=== PATIENT | male | born 1930 | race Caucasian/White ===

== ENCOUNTER → 2016-07-06 | Outpatient (CLI) | payer MEDICARE, BC ==
--- NOTE | 2016-07-06 12:40 | CR ---
EXAMINATION: Two-view chest (PA and Lateral views). HISTORY: Wheezing. COMPARISON: 09/05/2014. FINDINGS: The trachea is midline. The cardiomediastinal silhouette is grossly stable. There is chronic scarrin g noted within the left lung base. A trace underlying consolidation and/or pleural effusion is not e xcluded. No pneumothorax. Osseous structures appear unremarkable. IMPRESSION: Chronic left basilar scarring, mild superimposed pneumonia and/or a small pleural effusion are not e xcluded.
== END ==
LOC: MW.CHFP 11:06
PROVIDERS: ATTEND Student in an Organized Health Care Education/Training Program
DX: R05 Cough (principal); R06.2 Wheezing; R91.8 Other nonspecific abnormal finding of lung field
CPT/HCPCS: 36415; 71020; 71020-26; 85025; G0463

== ENCOUNTER → 2016-07-16 | Outpatient (CLI) | payer MEDICARE, BC ==
[~2016-07-16] MED LIST: Albuterol 0.083% 2.5 MG/3 ML Neb Soln NEB ONE
== END ==
LOC: MW.RT 13:14
PROVIDERS: ATTEND Student in an Organized Health Care Education/Training Program
DX: R06.2 Wheezing (principal)
CPT/HCPCS: 94060; 94727; 94729

== ENCOUNTER 2016-08-07 17:32 | Emergency (ER) | payer MEDICARE, BC ==
[2016-08-07] MEDS ORDERED: Diphtheria,Pertussis(Acell),Tetanus Vaccine 0.5 ML Syringe IM ONE (17:47)
--- NOTE | 2016-08-07 17:52 | EDM.PDOC ---
ED HPI GENERAL MEDICAL PROBLEM - General Chief Complaint: Laceration Stated Complaint: PT FELL AND HURT HEAD Time Seen by Provider: 08/07/16 17:50 Source of Information: Reports: Patient - History of Present Illness INITIAL COMMENTS - FREE TEXT/NARRATIVE: HISTORY AND PHYSICAL: History of present illness: [] Patient was working in his garden and he tripped over a hose sustained a small 1.5 cm linear laceration left occipital, he is alert and ambulatory arrives via private vehicle no pain No fever nausea vomiting chills sweats denies loss of consciousness Denies any musculoskeletal pain Review of systems: As per history of present illness and below otherwise all systems reviewed and negative. Past medical history: As per history of present illness and as reviewed below otherwise noncontributory. Surgical history: As per history of present illness and as reviewed below otherwise noncontributory. Social history: No reported history of drug or alcohol abuse. Family history: As per history of present illness and as reviewed below otherwise noncontributory. Physical exam: HEENT: Atraumatic, normocephalic, pupils reactive, negative for conjunctival pallor or scleral icterus, mucous membranes moist, throat clear, neck supple, nontender, trachea midline. No cervical tenderness Lungs: Clear to auscultation, breath sounds equal bilaterally, chest nontender. Heart: S1S2, regular, negative for clicks, rubs, or JVD. Abdomen: Soft, nondistended, nontender. Negative for masses or hepatosplenomegaly. Negative for costovertebral tenderness. Pelvis: Stable nontender. Genitourinary: Deferred. Rectal: Deferred. Extremities: Atraumatic, negative for cords or calf pain. Neurovascular unremarkable. Neuro: Awake, alert, oriented. Cranial nerves II through XII unremarkable. Cerebellum unremarkable. Motor and sensory unremarkable throughout. Exam nonfocal. Diagnostics: [] Therapeutics: [] #2 denise Tetanus status updated Impression: [] 1.5 cm linear laceration occiput Definitive disposition and diagnosis as appropriate pending reevaluation and review of above. Left Posterior Head Pain Score (Numeric/FACES): 5 - Related Data Allergies Allergy/AdvReac Type Severity Reaction Status Date / Time No Known Allergies Allergy Verified 08/07/16 17:44 Home Meds: Home Meds Finasteride [Proscar] 5 mg PO DAILY 08/07/16 [History] Hydrochlorothiazide 25 mg PO DAILY 08/07/16 [History] Potassium Chloride 20 meq PO DAILY 08/07/16 [History] Simvastatin [Zocor] 20 mg PO BEDTIME 08/07/16 [History] ED ROS GENERAL - Review of Systems Review Of Systems: ROS reveals no pertinent complaints other than HPI. ED EXAM, SKIN/RASH Exam: See Below Course - Vital Signs Last Recorded V/S: Last Vital Signs Temp 36.3 C 08/07/16 17:37 Pulse 81 08/07/16 17:37 Resp 21 H 08/07/16 17:37 BP 180/83 H 08/07/16 17:37 Pulse Ox 98 08/07/16 17:37 - Orders/Labs/Meds Orders: Active Orders 24 hr Category Date Time Status EKG Documentation Completion [RC] STAT Care 08/07/16 17:47 Ordered Vaccines to be Administered [RC] PER UNIT ROUTINE Care 08/07/16 17:47 Ordered Meds: Medications Discontinued Medications Generic Name Dose Route Start Last Admin Trade Name Ever PRN Reason Stop Dose Admin Diphtheria/Tetanus/Acell Pertussis 0.5 ml 08/07/16 17:47 Adacel IM 08/07/16 17:48 .ONCE ONE Departure - Departure Time of Disposition: 17:51 Disposition: Home, Self-Care 01 Condition: good Clinical Impression: Laceration - Discharge Information Forms: ED Department Discharge Additional Instructions: Standard head injury precaution Standard wound care instructions Keep wound clean and dry for 48 hours Return if redness warmth or pus drainage should it develop [place] out in 5 days return to ER for removal The following information is given to patients seen in the emergency department who are being discharged to home. This information is to outline your options for follow-up care. We provide all patients seen in our emergency department with a follow-up referral. The need for follow-up, as well as the timing and circumstances, are variable depending upon the specifics of your emergency department visit. If you don't have a primary care physician on staff, we will provide you with a referral. We always advise you to contact your personal physician following an emergency department visit to inform them of the circumstance of the visit and for follow-up with them and/or the need for any referrals to a consulting specialist. The emergency department will also refer you to a specialist when appropriate. This referral assures that you have the opportunity for follow-up care with a specialist. All of these measure are taken in an effort to provide you with optimal care, which includes your follow-up. Under all circumstances we always encourage you to contact your private physician who remains a resource for coordinating your care. When calling for follow-up care, please make the office aware that this follow-up is from your recent emergency room visit. If for any reason you are refused follow-up, please contact the [facility] emergency department at and asked to speak to the emergency department charge nurse. - My Orders Last 24 Hours: My Active Orders 08/07/16 17:47 EKG Documentation Completion [RC] STAT Vaccines to be Administered [RC] PER UNIT ROUTINE - Assessment/Plan Last 24 Hours: My Active Orders 08/07/16 17:47 EKG Documentation Completion [RC] STAT Vaccines to be Administered [RC] PER UNIT ROUTINE
[2016-08-07 18:09] VITALS: BP 173/79
== END 2016-08-07 18:06 | disposition home or self-care (01) ==
LOC: MW.ED 17:32
DX: S01.01XA Laceration without foreign body of scalp, initial encounter (principal); Z23 Encounter for immunization; W01.0XXA Fall on same level from slipping, tripping and stumbling without subsequent striking against object, initial encounter; Y92.89 Other specified places as the place of occurrence of the external cause; Z79.899 Other long term (current) drug therapy
CPT/HCPCS: 12001; 90471; 90715; 93005; 99282; 99283-25

== ENCOUNTER 2016-08-12 11:23 | Emergency (ER) | payer MEDICARE, BC ==
[2016-08-12 11:34] VITALS: BP 129/70
== END 2016-08-12 11:35 | disposition left against medical advice (07) ==
LOC: MW.ED 11:23
DX: S01.01XD Laceration without foreign body of scalp, subsequent encounter (principal); X58.XXXD Exposure to other specified factors, subsequent encounter

== ENCOUNTER 2017-05-24 17:14 | Emergency (ER) | payer MEDICARE, BC ==
[2017-05-24] MEDS ORDERED: Morphine 2 MG/ML Syringe IVPUSH ONE (17:46)
[2017-05-24] MEDS ORDERED: Sodium Chloride 0.9% 2.5 ML Syringe FLUSH PRN (17:46)
[2017-05-24] MEDS ORDERED: Sodium Chloride 0.9% 10 ML Syringe FLUSH PRN (17:46)
[2017-05-24] MEDS ORDERED: Ondansetron 4 MG/2 ML SDV IVPUSH ONE (17:46)
[2017-05-24 17:58] VITALS: BP 134/68
[2017-05-24] MEDS ORDERED: Sodium Chloride 0.9% 1,000 ML IV SCH (18:00)
[2017-05-24] MEDS ORDERED: Lactated Ringers 1,000 ML IV SCH (18:15)
--- NOTE | 2017-05-24 18:18 | EDM.PDOC ---
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 He denies incontinence or retention of bowel or bladder. Patient has had pleural effusion and thoracentesis for this with Dr. Yousif out of [facility]. He sees Dr. Sequeira out of [place] for oncology. Review of systems: As per history of present illness and below otherwise all systems reviewed and negative. Past medical history: As per history of present illness and as reviewed below otherwise noncontributory. Surgical history: As per history of present illness and as reviewed below otherwise noncontributory. Social history: No reported history of drug or alcohol abuse. Family history: As per history of present illness and as reviewed below otherwise noncontributory. Physical exam: HEENT: Atraumatic, normocephalic, pupils reactive, negative for conjunctival pallor or scleral icterus, mucous membranes moist, throat clear, neck supple, nontender, trachea midline. Lungs: Coarse bilaterally diminished scant basilar crackles, breath sounds equal bilaterally, chest nontender. Heart: S1S2, regular, negative for clicks, rubs, or JVD. Abdomen: Soft, nondistended, nontender. Negative for masses or hepatosplenomegaly. Negative for costovertebral tenderness. Pelvis: Stable nontender. Genitourinary: Deferred. Rectal: Deferred. Extremities: Atraumatic, negative for cords or calf pain. Neurovascular unremarkable. Neuro: Awake, alert, oriented. Cranial nerves II through XII unremarkable. Cerebellum unremarkable. Motor and sensory unremarkable throughout. Exam nonfocal. Back: Patient has some tenderness that is not well localized in the region of his lumbar spine there is no localized vertebral body tenderness on exam Diagnostics: BNP CBC CMP PT/INR UA chest x-ray EKG Therapeutics: Lactated Ringer's at 125 an hour morphine sulfate 2 mg IV Zofran 4 mg IV Impression: #1 history of metastatic lung CA with spine involvement #2 inferior extremity pain/weakness Definitive disposition and diagnosis as appropriate pending reevaluation and review of above. low back pain, bilateral leg pain Pain Score (Numeric/FACES): 9 - Related Data Allergies Allergy/AdvReac Type Severity Reaction Status Date / Time No Known Allergies Allergy Verified 08/07/16 17:44 Home Meds: Home Meds Finasteride [Proscar] 5 mg PO DAILY 08/07/16 [History] Hydrochlorothiazide 25 mg PO DAILY 08/07/16 [History] Potassium Chloride 20 meq PO DAILY 08/07/16 [History] Simvastatin [Zocor] 20 mg PO BEDTIME 08/07/16 [History] Past Medical History HEENT History: Reports: Hard of Hearing Other HEENT History: wears hearing aides Cardiovascular History: Reports: High Cholesterol, Hypertension Genitourinary History: Reports: Prostate Disorder Psychiatric History: Reports: None Oncologic (Cancer) History: Reports: Lung Other Oncologic History: 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 ED EXAM, GENERAL - Physical Exam Exam: See Below (See dictation) Course - Vital Signs Text/Narrative:: I discussed with patient and daughter at length differential diagnosis including spinal cord issues related to his metastatic disease and my concern regarding the weakness and pain in the acute nature of his presentation at this time and in spite of the advanced disease he has a 2 request transfer and to request specific transfer to [facility] they're declining aeromedical for transfer the request ground ambulance daughter and patient understand all the implications related to his current condition and the possible emergent nature and consequences of involvement of the spine with his presentation. Last Recorded V/S: Last Vital Signs Temp 36.2 C 05/24/17 17:53 Pulse 61 05/24/17 17:53 Resp 16 05/24/17 17:53 BP 134/68 05/24/17 17:53 Pulse Ox 96 05/24/17 17:53 - Orders/Labs/Meds Orders: Active Orders 24 hr Category Date Time Status EKG Documentation Completion [RC] STAT Care 05/24/17 17:45 Active Pulse Oximetry [RC] ASDIRECTED Care 05/24/17 17:45 Active Chest 1V Frontal [CR] Stat Exams 05/24/17 17:46 Taken UA W/MICROSCOPIC [URIN] Stat Lab 05/24/17 17:46 Ordered Lactated Ringers [Ringers, Lactated] 1,000 ml Med 05/24/17 18:15 Active IV ASDIRECTED Sodium Chloride 0.9% [Normal Saline] 1,000 ml Med 05/24/17 18:00 Active IV STAT Sodium Chloride 0.9% [Saline Flush] Med 05/24/17 17:46 Active 10 ml FLUSH ASDIRECTED PRN Sodium Chloride 0.9% [Saline Flush] Med 05/24/17 17:46 Active 2.5 ml FLUSH ASDIRECTED PRN Saline Lock Insert [OM.PC] Stat Oth 05/24/17 17:45 Ordered Medication Orders Sodium Chloride (Normal Saline) 1,000 mls @ 125 mls/hr IV STAT RAJIV Lactated Ringer's (Ringers, Lactated) 1,000 mls @ 125 mls/hr IV ASDIRECTED RAJIV Last Admin: 05/24/17 18:05 Dose: 125 mls/hr Sodium Chloride (Saline Flush) 10 ml FLUSH ASDIRECTED PRN PRN Reason: Keep Vein Open Sodium Chloride (Saline Flush) 2.5 ml FLUSH ASDIRECTED PRN PRN Reason: Keep Vein Open Labs: Laboratory Tests 05/24/17 05/24/17 05/24/17 Range/Units 17:58 17:58 17:58 WBC 11.73 H (4.0-11.0) K/uL RBC 4.12 L (4.50-5.90) M/uL Hgb 12.5 L (13.0-17.0) g/dL Hct 37.0 L (38.0-50.0) % MCV 89.8 (80.0-98.0) fL MCH 30.3 (27.0-32.0) pg MCHC 33.8 (31.0-37.0) g/dL RDW Std Deviation 50.4 (28.0-62.0) fl RDW Coeff of Estelita 15 (11.0-15.0) % Plt Count 369 (150-400) K/uL MPV 8.20 (7.40-12.00) fL Neut % (Auto) 79.6 (48.0-80.0) % Lymph % (Auto) 12.9 L (16.0-40.0) % [place] % (Auto) 6.7 (0.0-15.0) % Eos % (Auto) 0.5 (0.0-7.0) % Baso % (Auto) 0.3 (0.0-1.5) % Neut # (Auto) 9.3 H (1.4-5.7) K/uL Lymph # (Auto) 1.5 (0.6-2.4) K/uL [place] # (Auto) 0.8 (0.0-0.8) K/uL Eos # (Auto) 0.1 (0.0-0.7) K/uL Baso # (Auto) 0.0 (0.0-0.1) K/uL Nucleated RBC % 0.0 /100WBC Nucleated RBCs # 0 K/uL INR 0.93 Sodium 137 (136-148) mmol/L Potassium 3.7 (3.5-5.1) mmol/L Chloride 101 (98-107) mmol/L Carbon Dioxide 29.3 (21.0-32.0) mmol/L BUN 15 (7.0-18.0) mg/dL Creatinine 0.7 L (0.8-1.3) mg/dL Est Cr Clr Drug Dosing 78.52 mL/min Estimated GFR (MDRD) > 60.0 ml/min Glucose 99 (74-106) mg/dL Calcium 8.6 (8.5-10.1) mg/dL Total Bilirubin 0.8 (0.2-1.0) mg/dL AST 38 H (15-37) IU/L ALT 27 (14-63) IU/L Alkaline Phosphatase 490 H (46-116) U/L B-Natriuretic Peptide (<100) PG/ML Total Protein 7.0 (6.4-8.2) g/dL Albumin 3.3 L (3.4-5.0) g/dL Globulin 3.7 H (2.0-3.5) g/dL Albumin/Globulin Ratio 0.9 L (1.3-2.8) 05/24/17 Range/Units 17:58 WBC (4.0-11.0) K/uL RBC (4.50-5.90) M/uL Hgb (13.0-17.0) g/dL Hct (38.0-50.0) % MCV (80.0-98.0) fL MCH (27.0-32.0) pg MCHC (31.0-37.0) g/dL RDW Std Deviation (28.0-62.0) fl RDW Coeff of Estelita (11.0-15.0) % Plt Count (150-400) K/uL MPV (7.40-12.00) fL Neut % (Auto) (48.0-80.0) % Lymph % (Auto) (16.0-40.0) % [place] % (Auto) (0.0-15.0) % Eos % (Auto) (0.0-7.0) % Baso % (Auto) (0.0-1.5) % Neut # (Auto) (1.4-5.7) K/uL Lymph # (Auto) (0.6-2.4) K/uL [place] # (Auto) (0.0-0.8) K/uL Eos # (Auto) (0.0-0.7) K/uL Baso # (Auto) (0.0-0.1) K/uL Nucleated RBC % /100WBC Nucleated RBCs # K/uL INR Sodium (136-148) mmol/L Potassium (3.5-5.1) mmol/L Chloride (98-107) mmol/L Carbon Dioxide (21.0-32.0) mmol/L BUN (7.0-18.0) mg/dL Creatinine (0.8-1.3) mg/dL Est Cr Clr Drug Dosing mL/min Estimated GFR (MDRD) ml/min Glucose (74-106) mg/dL Calcium (8.5-10.1) mg/dL Total Bilirubin (0.2-1.0) mg/dL AST (15-37) IU/L ALT (14-63) IU/L Alkaline Phosphatase (46-116) U/L B-Natriuretic Peptide 78 (<100) PG/ML Total Protein (6.4-8.2) g/dL Albumin (3.4-5.0) g/dL Globulin (2.0-3.5) g/dL Albumin/Globulin Ratio (1.3-2.8) Meds: Medications Generic Name Dose Route Start Last Admin Trade Name Freq PRN Reason Stop Dose Admin Sodium Chloride 1,000 mls @ 125 mls/hr 05/24/17 18:00 Normal Saline IV STAT RAJIV Lactated Ringer's 1,000 mls @ 125 mls/hr 05/24/17 18:15 05/24/17 18:05 Ringers, Lactated IV 125 mls/hr ASDIRECTED RAJIV Administration Sodium Chloride 10 ml 05/24/17 17:46 Saline Flush FLUSH ASDIRECTED PRN Keep Vein Open Sodium Chloride 2.5 ml 05/24/17 17:46 Saline Flush FLUSH ASDIRECTED PRN Keep Vein Open Discontinued Medications Generic Name Dose Route Start Last Admin Trade Name Freq PRN Reason Stop Dose Admin Morphine Sulfate 2 mg 05/24/17 17:46 05/24/17 18:09 Morphine IVPUSH 05/24/17 17:47 2 mg ONETIME ONE Administration Ondansetron HCl 4 mg 05/24/17 17:46 05/24/17 18:09 Zofran IVPUSH 05/24/17 17:47 4 mg ONETIME ONE Administration Departure - Departure Time of Disposition: 18:40 Disposition: DC/Tfer to Acute Hospital 02 Condition: Good Clinical Impression: Metastatic cancer, Weakness - Discharge Information Referrals: Aroldo Hassan MD [Primary Care Provider] - Forms: ED Department Discharge - My Orders Last 24 Hours: My Active Orders 05/24/17 17:45 EKG Documentation Completion [RC] STAT Pulse Oximetry [RC] ASDIRECTED Saline Lock Insert [OM.PC] Stat 05/24/17 17:46 Chest 1V Frontal [CR] Stat UA W/MICROSCOPIC [URIN] Stat Sodium Chloride 0.9% [Saline Flush] 10 ml FLUSH ASDIRECTED PRN Sodium Chloride 0.9% [Saline Flush] 2.5 ml FLUSH ASDIRECTED PRN 05/24/17 18:00 Sodium Chloride 0.9% [Normal Saline] 1,000 ml IV STAT 05/24/17 18:15 Lactated Ringers [Ringers, Lactated] 1,000 ml IV ASDIRECTED - Assessment/Plan Last 24 Hours: My Active Orders 05/24/17 17:45 EKG Documentation Completion [RC] STAT Pulse Oximetry [RC] ASDIRECTED Saline Lock Insert [OM.PC] Stat 05/24/17 17:46 Chest 1V Frontal [CR] Stat UA W/MICROSCOPIC [URIN] Stat Sodium Chloride 0.9% [Saline Flush] 10 ml FLUSH ASDIRECTED PRN Sodium Chloride 0.9% [Saline Flush] 2.5 ml FLUSH ASDIRECTED PRN 05/24/17 18:00 Sodium Chloride 0.9% [Normal Saline] 1,000 ml IV STAT 05/24/17 18:15 Lactated Ringers [Ringers, Lactated] 1,000 ml IV ASDIRECTED
[2017-05-24 18:25] LABS: CHLORIDE,CL 101 mmol/L (98-107); SODIUM,NA 137 mmol/L (136-148)
--- NOTE | 2017-05-25 09:57 | CR ---
EXAM DATE: 05/24/17 PATIENT'S AGE: 87 Patient: [facility] Facility: [place], [place] Site . Site : [id number] Study: XRay Chest [id number] 6:24:41 PM Ordering Physician: Nathaly Gregg Final Report: HISTORY: Low back pain, bilateral leg pain. FINDINGS: AP portable chest radiograph is compared with 08 April 2017. There is a persistent moderate left pleural effusion with atelectatic lung lateral to the left hilum. There is a new band of atelectatic lung in the right lower lung. The left pleural effusion makes evaluation of cardiac silhouette difficult. No right pleural effusion is identified. IMPRESSION: 1. Persistent moderate left pleural effusion with adjacent atelectatic lung lateral to the left hilum. 2. New atelectatic lung in the right lower lung field. Dictated by Halima Herrera MD @ 05/24/2017 6:32:26 PM Dictated by: Halima Herrera MD @ 05/24/2017 18:32:36 (Electronic Signature) Report Signed by Proxy. [email or web address]
== END 2017-05-24 19:20 ==
LOC: MW.ED 17:14
DX: M79.604 Pain in right leg (principal); M79.605 Pain in left leg; C34.90 Malignant neoplasm of unspecified part of unspecified bronchus or lung; C79.51 Secondary malignant neoplasm of bone; E78.00 Pure hypercholesterolemia, unspecified; I10 Essential (primary) hypertension; Z90.49 Acquired absence of other specified parts of digestive tract; Z79.899 Other long term (current) drug therapy
CPT/HCPCS: 36415; 71045; 80053; 81001; 83880; 85025; 85610; 93005; 96361; 96374; 96375; 99285; J2270; J2405; J7120; 99284

== ENCOUNTER 2017-06-27 11:03 | Inpatient (IN) | payer MEDICARE, BC ==
--- NOTE | 2017-06-27 11:16 | EDM.PDOC ---
ED HPI GENERAL MEDICAL PROBLEM - General Chief Complaint: Back Pain or Injury Stated Complaint: WEAK Time Seen by Provider: 06/27/17 11:10 - History of Present Illness INITIAL COMMENTS - FREE TEXT/NARRATIVE: HISTORY AND PHYSICAL: History of present illness: The patient is an 87-year-old male with a known history of metastatic lung cancer who follows both here at our cancer center with Dr. Sequeira from [facility] as well as providers at of [facility] and in fact was seen here on May 24 and transferred to [facility] for back pain and weakness who presents today with similar complaints. 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 He then had 10 days of radiation therapy to strive to shrink the remaining tumor and during that time he was placed in rehabilitation there. He finished the radiation therapy and was started on oral chemotherapy on and on did very well with physical therapy with good strength and ambulating well and minimal pain. He had been having physical therapy throughout the course of the rehabilitation stay. He was using only one pain pill a day at that time of oxycodone 5 mg. The patient felt good enough to be discharged home and was picked up by his family on Wednesday night and drove home and had an uneventful trip home. Patient woke yesterday morning and according to family he was complaining of increased pain near his incisional area and lower extremity weakness and difficulty ambulating. The patient currently is using the oxycodone 5 mg every 4-6 hours as prescribed and this is an increase from when he was at the rehabilitation location. The patient has not had any recent falls or near falls and has no systemic complaints of fever chills chest pain shortness of breath abdominal pain vomiting urinary or bowel complaints. Patient has always been on a medication for BPH and has to go and urinate frequently which is not new or different. He does not feel like he is having urinary retention and he is not having loss of bowel or bladder. He says the pain is mostly localized near his incisional area and is worse when he lays on it but it does not radiate to his legs. He feels that the legs are weaker than they were several days ago and he feels more unsteady with his gait. Family says they are unable to address his needs and are concerned about this sudden change from his discharge until today. Patient' s oncologist at [facility] is Dr. Bhatti and his neurosurgeon was Dr Osorio. Patient does have a history of a left pleural effusion and says he does feel little short of breath but not as much she has in the past. He has no other complaints of pain or weakness area please note that the patient was transferred to [place] on May 23 and was either there as an inpatient or in rehabilitation until this past Wednesday evening when he came home. The total time in [place] was 5 weeks. Patient specifically states that his weakness is in his lower legs not in his upper extremities and although he told nursing and was a generalized weakness is more due to his decreased ability to ambulate and he does say that he does have some overall weakness but his legs are what he feels are weaker. The patient had a recent PET scan performed on March 25 of this year indicated numerous osseous metastatic lesions noted within the vertebral bodies pelvis sacrum multiple ribs bilaterally sternum and scapula. There is an ill- defined masslike area of atelectasis in the left infrahilar region which demonstrated uptake and was the probable site of primary malignancy. At that time he also had a moderate left pleural effusion which she has had before and had drainage of. Patient also had an MRI with and without contrast of his brain performed on April 02 of this year which indicated mild generalized atrophy and small vessel ischemic changes but no evidence of intracranial metastatic disease or intracranial abnormalities. Please see below for more information given to me by a family member privately Review of systems: As per history of present illness and below otherwise all systems reviewed and negative. Past medical history: As per history of present illness and as reviewed below otherwise noncontributory. Surgical history: As per history of present illness and as reviewed below otherwise noncontributory. Social history: No reported history of drug or alcohol abuse. Family history: As per history of present illness and as reviewed below otherwise noncontributory. Physical exam: General: Well-developed well-nourished man who is nontoxic and speaking clearly in the ED. Vital signs are noted by me HEENT: Atraumatic, normocephalic, negative for conjunctival pallor or scleral icterus, mucous membranes moist, throat clear, neck supple, nontender, trachea midline. Lungs: Clear to auscultation, breath sounds equal bilaterally, chest nontender. There is slightly diminished breath sound in the left base but no worker breathing stridor or wheezing Heart: S1S2, regular rate and rhythm no overt murmurs Abdomen: Soft, nondistended, nontender. Negative for masses or hepatosplenomegaly. Negative for costovertebral tenderness. Pelvis: Stable nontender. Genitourinary: Deferred. Rectal: Deferred. Extremities: Atraumatic, negative for cords or calf pain. Neurovascular unremarkable. Full range of motion without defects and there is bilateral trace pitting edema noticed in his feet and ankles Neuro: Awake, alert, oriented. Cranial nerves II through XII unremarkable. While sitting in the bed patient has good strength 5/5 of bilateral lower extremities including dorsi and plantar flexion inclusive of the great toe. Inversion and even version of his feet are intact. Tone is normal. When we go to stand the patient up he is incredibly weak and unsteady and can take a few steps with assistance but is not able to ambulate without assistance. sensory unremarkable throughout. When the patient laying supine in bed and ask him to lift at his hips with a straight leg he is much weaker 3/5 with this movement but when I asked him to bend at the knee or use the foot is strength is 5/5 Exam nonfocal. Upper extremities have a 5/5 strength throughout with normal tone and normal sensory Back: There are no midline step-offs tenderness or defects of the thoracic or lumbar spine and there is a midline incision seen at the lumbar area with some chronic skin changes appreciated but there is no fluctuance no erythema and no discrete tenderness on palpation. Diagnostics: CBC CMP UA lactic acid CT scan of the lumbar spine with contrast, magnesium level Case was discussed by the CT staff with [facility] and they want the CT to be performed with contrast in light of his recent surgery Therapeutics: IV, potassium Patient states he took a pain pill before coming here and his pain is very minimal currently One of the daughters came up and spoke privately about the patient. They have had lengthy conversations with this patient and although he was clear to leave rehabilitation to come home they thought it might have been premature as the patient lives alone and no care situation was put in place. The daughter states that they were trying to be very optimistic and bringing him home but now that he has at home and he does need assistance at all times to prevent falls and do normal activities they truly feel that he needs placement in a custodial. The patient is agreeable to this per the family and a conversation I had yesterday. According to the family all of them currently have jobs and cannot spend all day with him. They're very concerned about him falling or injuring himself and they agree that likely the patient was not doing full ADLs while at rehabilitation and now he is doing those which has triggered more pain and more weakness and instability. I did discuss with her that I would proceed with my workup to assure that there was no acute surgical or emergent problem that mandated transfer back to [place]. She tells me that the patient is specifically told her and the rest of the family that he does not want any more testing and he does not want to go back to [place]. She also tells me that they have an appointment with social economist tomorrow to try to work on placement and she has filled out the paperwork at [facility]. She is scared because she does not feel that she can take the patient home due to his situation. As noted on his blood work to have a mild hypokalemia at 3.1 and his albumin has fallen to 2.1 since May 24 I discussed with the patient and family at length testing results and my concerns due to our limitation of resources and his recent prolonged hospitalization and rehabilitation at [facility]. The CT scan of the lumbar spine does not reveal any acute surgical emergency at the patient and family are aware that the MRI is the better test which I cannot performed today. In light of the patient's presentation and recent events I have offered transfer back to [facility] where his care is been until just 48 hours ago but the patient and family absolutely declined that. They would prefer to be admitted here for further evaluation and then placement at [facility]. The patient is agreeable to this. He is aware of all of my concerns and accepts them. I discussed this case with our hospitalist Dr. Do at 2:30 PM she accepts the patient Impression: Inability to ambulate, metastatic lung cancer with back pain and recent surgery stable Mild hypokalemia Definitive disposition and diagnosis as appropriate pending reevaluation and review of above. back Pain Score (Numeric/FACES): 2 - Related Data Allergies Allergy/AdvReac Type Severity Reaction Status Date / Time No Known Allergies Allergy Verified 06/27/17 11:13 Home Meds: Home Meds Finasteride [Proscar] 5 mg PO DAILY 08/07/16 [History] Hydrochlorothiazide 25 mg PO DAILY 08/07/16 [History] Potassium Chloride 20 meq PO DAILY 08/07/16 [History] Simvastatin [Zocor] 20 mg PO BEDTIME 08/07/16 [History] Albuterol [Ventolin HFA] 8 gm INH ASDIRECTED PRN 06/27/17 [History] Crizotinib [Xalkori] 250 mg PO DAILY 06/27/17 [History] oxyCODONE 5 mg PO Q4HR 06/27/17 [History] Past Medical History HEENT History: Reports: Hard of Hearing Other HEENT History: wears hearing aides Cardiovascular History: Reports: High Cholesterol, Hypertension Genitourinary History: Reports: Prostate Disorder Psychiatric History: Reports: None Oncologic (Cancer) History: Reports: Lung Other Oncologic History: 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 ED EXAM, GENERAL - Physical Exam Exam: See Below (See dictation) Course - Vital Signs Last Recorded V/S: Last Vital Signs Temp 35.8 C 06/27/17 11:15 Pulse 86 06/27/17 11:17 Resp 18 06/27/17 11:17 BP 104/49 L 06/27/17 11:17 Pulse Ox 94 L 06/27/17 11:17 - Orders/Labs/Meds Orders: Active Orders 24 hr Category Date Time Status Patient Status [ADT] Stat ADT 06/27/17 14:29 Ordered Chest 1V Frontal [CR] Stat Exams 06/27/17 12:31 Taken Lumbar Spine w Cont [CT] Stat Exams 06/27/17 11:47 Taken UA W/MICROSCOPIC [URIN] Stat Lab 06/27/17 13:33 Ordered Sodium Chloride 0.9% [Saline Flush] Med 06/27/17 11:35 Active 10 ml FLUSH ASDIRECTED PRN Sodium Chloride 0.9% [Saline Flush] Med 06/27/17 11:35 Active 2.5 ml FLUSH ASDIRECTED PRN Saline Lock Insert [OM.PC] Stat Oth 06/27/17 11:37 Ordered Medication Orders Sodium Chloride (Saline Flush) 10 ml FLUSH ASDIRECTED PRN PRN Reason: Keep Vein Open Sodium Chloride (Saline Flush) 2.5 ml FLUSH ASDIRECTED PRN PRN Reason: Keep Vein Open Labs: Laboratory Tests 06/27/17 06/27/17 06/27/17 Range/Units 11:46 11:46 11:46 WBC 9.28 (4.0-11.0) K/uL RBC 4.15 L (4.50-5.90) M/uL Hgb 12.1 L (13.0-17.0) g/dL Hct 36.6 L (38.0-50.0) % MCV 88.2 (80.0-98.0) fL MCH 29.2 (27.0-32.0) pg MCHC 33.1 (31.0-37.0) g/dL RDW Std Deviation 47.0 (28.0-62.0) fl RDW Coeff of Estelita 15 (11.0-15.0) % Plt Count 256 (150-400) K/uL MPV 8.40 (7.40-12.00) fL Neut % (Auto) 83.8 H (48.0-80.0) % Lymph % (Auto) 8.0 L (16.0-40.0) % Snyder % (Auto) 7.8 (0.0-15.0) % Eos % (Auto) 0.2 (0.0-7.0) % Baso % (Auto) 0.2 (0.0-1.5) % Neut # (Auto) 7.8 H (1.4-5.7) K/uL Lymph # (Auto) 0.7 (0.6-2.4) K/uL Snyder # (Auto) 0.7 (0.0-0.8) K/uL Eos # (Auto) 0.0 (0.0-0.7) K/uL Baso # (Auto) 0.0 (0.0-0.1) K/uL Nucleated RBC % 0.0 /100WBC Nucleated RBCs # 0 K/uL Lactate 1.9 (0.20-2.00) mmol/L Sodium 137 (136-148) mmol/L Potassium 3.1 L (3.5-5.1) mmol/L Chloride 99 (98-107) mmol/L Carbon Dioxide 29.4 (21.0-32.0) mmol/L BUN 21 H (7.0-18.0) mg/dL Creatinine 1.0 (0.8-1.3) mg/dL Est Cr Clr Drug Dosing 53.98 mL/min Estimated GFR (MDRD) > 60.0 ml/min Glucose 106 (74-106) mg/dL Calcium 7.5 L (8.5-10.1) mg/dL Magnesium (1.5-2.0) mg/dL Total Bilirubin 1.0 (0.2-1.0) mg/dL AST 80 H (15-37) IU/L ALT 55 (14-63) IU/L Alkaline Phosphatase 306 H (46-116) U/L Total Protein 6.3 L (6.4-8.2) g/dL Albumin 2.1 L (3.4-5.0) g/dL Globulin 4.2 H (2.0-3.5) g/dL Albumin/Globulin Ratio 0.5 L (1.3-2.8) Urine Color Urine Appearance Urine pH (5.0-8.0) Ur Specific [place] (1.001-1.035) Urine Protein (NEGATIVE) mg/dL Urine Glucose (UA) (NEGATIVE) mg/dL Urine Ketones (NEGATIVE) mg/dL Urine Occult Blood (NEGATIVE) Urine Nitrite (NEGATIVE) Urine Bilirubin (NEGATIVE) Urine Urobilinogen (<2.0) EU/dL Ur Leukocyte Esterase (NEGATIVE) Urine RBC (0-2/HPF) Urine WBC (0-5/HPF) Ur Epithelial Cells (NONE-FEW) Urine Bacteria (NEGATIVE) 06/27/17 06/27/17 Range/Units 11:47 13:33 WBC (4.0-11.0) K/uL RBC (4.50-5.90) M/uL Hgb (13.0-17.0) g/dL Hct (38.0-50.0) % MCV (80.0-98.0) fL MCH (27.0-32.0) pg MCHC (31.0-37.0) g/dL RDW Std Deviation (28.0-62.0) fl RDW Coeff of Estelita (11.0-15.0) % Plt Count (150-400) K/uL MPV (7.40-12.00) fL Neut % (Auto) (48.0-80.0) % Lymph % (Auto) (16.0-40.0) % Snyder % (Auto) (0.0-15.0) % Eos % (Auto) (0.0-7.0) % Baso % (Auto) (0.0-1.5) % Neut # (Auto) (1.4-5.7) K/uL Lymph # (Auto) (0.6-2.4) K/uL Snyder # (Auto) (0.0-0.8) K/uL Eos # (Auto) (0.0-0.7) K/uL Baso # (Auto) (0.0-0.1) K/uL Nucleated RBC % /100WBC Nucleated RBCs # K/uL Lactate (0.20-2.00) mmol/L Sodium (136-148) mmol/L Potassium (3.5-5.1) mmol/L Chloride (98-107) mmol/L Carbon Dioxide (21.0-32.0) mmol/L BUN (7.0-18.0) mg/dL Creatinine (0.8-1.3) mg/dL Est Cr Clr Drug Dosing mL/min Estimated GFR (MDRD) ml/min Glucose (74-106) mg/dL Calcium (8.5-10.1) mg/dL Magnesium 1.9 (1.5-2.0) mg/dL Total Bilirubin (0.2-1.0) mg/dL AST (15-37) IU/L ALT (14-63) IU/L Alkaline Phosphatase (46-116) U/L Total Protein (6.4-8.2) g/dL Albumin (3.4-5.0) g/dL Globulin (2.0-3.5) g/dL Albumin/Globulin Ratio (1.3-2.8) Urine Color YELLOW Urine Appearance CLEAR Urine pH 5.5 (5.0-8.0) Ur Specific [place] 1.015 (1.001-1.035) Urine Protein NEGATIVE (NEGATIVE) mg/dL Urine Glucose (UA) NEGATIVE (NEGATIVE) mg/dL Urine Ketones TRACE H (NEGATIVE) mg/dL Urine Occult Blood NEGATIVE (NEGATIVE) Urine Nitrite NEGATIVE (NEGATIVE) Urine Bilirubin NEGATIVE (NEGATIVE) Urine Urobilinogen 4.0 H (<2.0) EU/dL Ur Leukocyte Esterase NEGATIVE (NEGATIVE) Urine RBC 0-2 (0-2/HPF) Urine WBC 2-4 (0-5/HPF) Ur Epithelial Cells FEW (NONE-FEW) Urine Bacteria FEW (NEGATIVE) Meds: Medications Generic Name Dose Route Start Last Admin Trade Name Freq PRN Reason Stop Dose Admin Sodium Chloride 10 ml 06/27/17 11:35 Saline Flush FLUSH ASDIRECTED PRN Keep Vein Open Sodium Chloride 2.5 ml 06/27/17 11:35 Saline Flush FLUSH ASDIRECTED PRN Keep Vein Open Discontinued Medications Generic Name Dose Route Start Last Admin Trade Name Freq PRN Reason Stop Dose Admin Iopamidol 200 ml 06/27/17 13:14 06/27/17 13:19 Isovue Multipack-370 (76%) IVPUSH 06/27/17 13:15 70 ml ONETIME ONE Administration Potassium Chloride 20 meq 06/27/17 12:50 06/27/17 13:23 Klor-Con M20 PO 06/27/17 12:51 20 meq ONETIME ONE Administration Departure - Departure Time of Disposition: 14:33 Disposition: Admitted As Inpatient 64 Condition: Good Clinical Impression: Metastatic cancer, Unable to walk Back pain Qualifiers: Back pain location: low back pain Chronicity: unspecified Back pain laterality : bilateral Sciatica presence: without sciatica Qualified Code(s): M54.5 - Low back pain - Discharge Information Referrals: Aroldo Hassan MD [Primary Care Provider] - Forms: ED Department Discharge - My Orders Last 24 Hours: My Active Orders 06/27/17 11:35 Sodium Chloride 0.9% [Saline Flush] 10 ml FLUSH ASDIRECTED PRN Sodium Chloride 0.9% [Saline Flush] 2.5 ml FLUSH ASDIRECTED PRN 06/27/17 11:37 Saline Lock Insert [OM.PC] Stat 06/27/17 11:47 Lumbar Spine w Cont [CT] Stat 06/27/17 12:31 Chest 1V Frontal [CR] Stat 06/27/17 13:33 UA W/MICROSCOPIC [URIN] Stat 06/27/17 14:29 Patient Status [ADT] Stat - Assessment/Plan Last 24 Hours: My Active Orders 06/27/17 11:35 Sodium Chloride 0.9% [Saline Flush] 10 ml FLUSH ASDIRECTED PRN Sodium Chloride 0.9% [Saline Flush] 2.5 ml FLUSH ASDIRECTED PRN 06/27/17 11:37 Saline Lock Insert [OM.PC] Stat 06/27/17 11:47 Lumbar Spine w Cont [CT] Stat 06/27/17 12:31 Chest 1V Frontal [CR] Stat 06/27/17 13:33 UA W/MICROSCOPIC [URIN] Stat 06/27/17 14:29 Patient Status [ADT] Stat
[2017-06-27] MEDS ORDERED: Sodium Chloride 0.9% 2.5 ML Syringe FLUSH PRN ×2 (11:35→17:21)
[2017-06-27] MEDS ORDERED: Sodium Chloride 0.9% 10 ML Syringe FLUSH PRN ×2 (11:35→17:21)
[2017-06-27 12:31] LABS: CHLORIDE,CL 99 mmol/L (98-107); SODIUM,NA 137 mmol/L (136-148)
[2017-06-27] MEDS ORDERED: Potassium Chloride 20 MEQ Tab.ER PO ONE (12:50)
[2017-06-27] MEDS ORDERED: Iopamidol 755 MG/ML 200 ML Multipack Bottle IVPUSH ONE (13:14)
[2017-06-27] MEDS ORDERED: Albuterol/Ipratropium 3.0-0.5 MG/3 ML Neb Soln NEB PRN (17:21)
[2017-06-27] MEDS ORDERED: Albuterol 8 GM Inhaler INH PRN (17:29)
--- NOTE | 2017-06-27 17:31 | PCM.HP ---
H&P History of Present Illness - General Date of Service: 06/28/17 Admit Problem/Dx: Admission Diagnosis/Problem Admission Diagnosis/Problem Metastatic malignant neoplasm Source of Information: Patient, Family - History of Present Illness Initial Comments - Free Text/Narative: Patient 87 y old man with PMHx of metastatic lung cancer , diagnosed this year in March , presented to hospital due to weakness in the legs and pain in the back 2/10 intensity. Patient had lumbar spine surgery for removal of a metastatic mass , which was partially removed and he had f/up radiation therapy and physical therapy. He was admitted at [facility] on May 24 and was discharged home 2 days ago. At the time of discharge patient was able to ambulate and used only 1 tablet of oxycodone 5 mg a day.Patient has now erythema and a fluid collection next to the incision and oozing yellow fluid from the incision site. In [place] it was recommended patient to be transferred to [facility] in [facility] , but patient refused. No bowel incontinence , has urinary frequency. Onset of Symptoms: Reports: Today Location: Reports: Back Quality: Reports: Pressure back Pain Score (Numeric/FACES): 2 - Related Data Allergies/Adverse Reactions: Allergies Allergy/AdvReac Type Severity Reaction Status Date / Time No Known Allergies Allergy Verified 06/27/17 11:13 Home Medications: Home Meds Finasteride [Proscar] 5 mg PO DAILY 08/07/16 [History] Hydrochlorothiazide 25 mg PO DAILY 08/07/16 [History] Potassium Chloride 20 meq PO DAILY 08/07/16 [History] Simvastatin [Zocor] 20 mg PO BEDTIME 08/07/16 [History] Albuterol [Ventolin HFA] 8 gm INH ASDIRECTED PRN 06/27/17 [History] Crizotinib [Xalkori] 250 mg PO DAILY 06/27/17 [History] oxyCODONE 5 mg PO Q4HR 06/27/17 [History] Past Medical History HEENT History: Reports: Hard of Hearing Other HEENT History: wears hearing aides Cardiovascular History: Reports: High Cholesterol, Hypertension Respiratory History: Reports: None Gastrointestinal History: Reports: None Genitourinary History: Reports: Prostate Disorder Musculoskeletal History: Reports: Other (See Below) Other Musculoskeletal History: 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 (05/26/17) Neurological History: Reports: None Psychiatric History: Reports: None Endocrine/Metabolic History: Reports: None Hematologic History: Reports: None Immunologic History: Reports: None Oncologic (Cancer) History: Reports: Lung Other Oncologic History: 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 to spine Dermatologic History: Reports: None - Infectious Disease History Infectious Disease History: Reports: None - Past Surgical History Head Surgeries/Procedures: Reports: None Respiratory Surgical History: Reports: None GI Surgical History: Reports: Appendectomy, Cholecystectomy Endocrine Surgical History: Reports: None Neurological Surgical History: Reports: None Musculoskeletal Surgical History: Reports: Other (See Below) Other Musculoskeletal Surgeries/Procedures:: back surgery Social & Family History - Family History Family Medical History: Noncontributory - Tobacco Use Smoking Status *Q: Never Smoker Second Hand Smoke Exposure: No - Caffeine Use Caffeine Use: Reports: Coffee Caffeine Use Comment: 3cups/day - Recreational Drug Use Recreational Drug Use: No H&P Review of Systems - Review of Systems: Review Of Systems: See Below General: Reports: Weakness, Decreased Appetite, Weight Loss. Denies: Fever, Chills HEENT: Reports: No Symptoms Pulmonary: Reports: No Symptoms Cardiovascular: Reports: No Symptoms Gastrointestinal: Reports: No Symptoms Genitourinary: Reports: No Symptoms Musculoskeletal: Reports: Back Pain Skin: Reports: Wound Psychiatric: Reports: No Symptoms Neurological: Reports: Weakness Hematologic/Lymphatic: Reports: No Symptoms Immunologic: Reports: No Symptoms Exam - Exam Exam: See Below - Vital Signs Vital Signs: Last Vital Signs Temp 98.5 F 06/27/17 15:10 Pulse 77 06/27/17 15:10 Resp 16 06/27/17 15:10 BP 124/62 06/27/17 15:10 Pulse Ox 91 L 06/27/17 15:10 Weight: 157 lb 4.797 oz - Exam General: Alert, Oriented HEENT: Conjunctiva Clear Neck: Supple, Trachea Midline, +2 Carotid Pulse wo Bruit Lungs: Clear to Auscultation, Normal Respiratory Effort Cardiovascular: Regular Rate, Regular Rhythm, Normal S1, Normal S2 GI/Abdominal Exam: Normal Bowel Sounds Back Exam: Decreased Range of Motion, Vertebral Tenderness, Other (incision site id draining a yellow fluid , necrotic margins around the wound , next to the wound it is a ). No: Normal Inspection, Full Range of Motion Extremities: Normal Inspection, Other (leg weakness) Skin: Warm Neuro Extensive - Mental Status: Alert, Oriented x3 Neuro Extensive - Motor, Sensory, Reflexes: CN II-XII Intact, Abnormal Gait. No : Normal Gait, Motor/Sensory Deficits Psychiatric: Alert, Normal Affect - Patient Data Lab Results Last 24 hrs: Laboratory Results - last 24 hr 06/27/17 06/27/17 06/27/17 Range/Units 11:46 11:46 11:46 WBC 9.28 (4.0-11.0) K/uL RBC 4.15 L (4.50-5.90) M/uL Hgb 12.1 L (13.0-17.0) g/dL Hct 36.6 L (38.0-50.0) % MCV 88.2 (80.0-98.0) fL MCH 29.2 (27.0-32.0) pg MCHC 33.1 (31.0-37.0) g/dL RDW Std Deviation 47.0 (28.0-62.0) fl RDW Coeff of Estelita 15 (11.0-15.0) % Plt Count 256 (150-400) K/uL MPV 8.40 (7.40-12.00) fL Neut % (Auto) 83.8 H (48.0-80.0) % Lymph % (Auto) 8.0 L (16.0-40.0) % [place] % (Auto) 7.8 (0.0-15.0) % Eos % (Auto) 0.2 (0.0-7.0) % Baso % (Auto) 0.2 (0.0-1.5) % Neut # (Auto) 7.8 H (1.4-5.7) K/uL Lymph # (Auto) 0.7 (0.6-2.4) K/uL [place] # (Auto) 0.7 (0.0-0.8) K/uL Eos # (Auto) 0.0 (0.0-0.7) K/uL Baso # (Auto) 0.0 (0.0-0.1) K/uL Nucleated RBC % 0.0 /100WBC Nucleated RBCs # 0 K/uL Lactate 1.9 (0.20-2.00) mmol/L Sodium 137 (136-148) mmol/L Potassium 3.1 L (3.5-5.1) mmol/L Chloride 99 (98-107) mmol/L Carbon Dioxide 29.4 (21.0-32.0) mmol/L BUN 21 H (7.0-18.0) mg/dL Creatinine 1.0 (0.8-1.3) mg/dL Est Cr Clr Drug Dosing 53.98 mL/min Estimated GFR (MDRD) > 60.0 ml/min Glucose 106 (74-106) mg/dL Calcium 7.5 L (8.5-10.1) mg/dL Magnesium (1.5-2.0) mg/dL Total Bilirubin 1.0 (0.2-1.0) mg/dL AST 80 H (15-37) IU/L ALT 55 (14-63) IU/L Alkaline Phosphatase 306 H (46-116) U/L Total Protein 6.3 L (6.4-8.2) g/dL Albumin 2.1 L (3.4-5.0) g/dL Globulin 4.2 H (2.0-3.5) g/dL Albumin/Globulin Ratio 0.5 L (1.3-2.8) Urine Color Urine Appearance Urine pH (5.0-8.0) Ur Specific Millis (1.001-1.035) Urine Protein (NEGATIVE) mg/dL Urine Glucose (UA) (NEGATIVE) mg/dL Urine Ketones (NEGATIVE) mg/dL Urine Occult Blood (NEGATIVE) Urine Nitrite (NEGATIVE) Urine Bilirubin (NEGATIVE) Urine Urobilinogen (<2.0) EU/dL Ur Leukocyte Esterase (NEGATIVE) Urine RBC (0-2/HPF) Urine WBC (0-5/HPF) Ur Epithelial Cells (NONE-FEW) Urine Bacteria (NEGATIVE) 06/27/17 06/27/17 Range/Units 11:47 13:33 WBC (4.0-11.0) K/uL RBC (4.50-5.90) M/uL Hgb (13.0-17.0) g/dL Hct (38.0-50.0) % MCV (80.0-98.0) fL MCH (27.0-32.0) pg MCHC (31.0-37.0) g/dL RDW Std Deviation (28.0-62.0) fl RDW Coeff of Estelita (11.0-15.0) % Plt Count (150-400) K/uL MPV (7.40-12.00) fL Neut % (Auto) (48.0-80.0) % Lymph % (Auto) (16.0-40.0) % [place] % (Auto) (0.0-15.0) % Eos % (Auto) (0.0-7.0) % Baso % (Auto) (0.0-1.5) % Neut # (Auto) (1.4-5.7) K/uL Lymph # (Auto) (0.6-2.4) K/uL [place] # (Auto) (0.0-0.8) K/uL Eos # (Auto) (0.0-0.7) K/uL Baso # (Auto) (0.0-0.1) K/uL Nucleated RBC % /100WBC Nucleated RBCs # K/uL Lactate (0.20-2.00) mmol/L Sodium (136-148) mmol/L Potassium (3.5-5.1) mmol/L Chloride (98-107) mmol/L Carbon Dioxide (21.0-32.0) mmol/L BUN (7.0-18.0) mg/dL Creatinine (0.8-1.3) mg/dL Est Cr Clr Drug Dosing mL/min Estimated GFR (MDRD) ml/min Glucose (74-106) mg/dL Calcium (8.5-10.1) mg/dL Magnesium 1.9 (1.5-2.0) mg/dL Total Bilirubin (0.2-1.0) mg/dL AST (15-37) IU/L ALT (14-63) IU/L Alkaline Phosphatase (46-116) U/L Total Protein (6.4-8.2) g/dL Albumin (3.4-5.0) g/dL Globulin (2.0-3.5) g/dL Albumin/Globulin Ratio (1.3-2.8) Urine Color YELLOW Urine Appearance CLEAR Urine pH 5.5 (5.0-8.0) Ur Specific Millis 1.015 (1.001-1.035) Urine Protein NEGATIVE (NEGATIVE) mg/dL Urine Glucose (UA) NEGATIVE (NEGATIVE) mg/dL Urine Ketones TRACE H (NEGATIVE) mg/dL Urine Occult Blood NEGATIVE (NEGATIVE) Urine Nitrite NEGATIVE (NEGATIVE) Urine Bilirubin NEGATIVE (NEGATIVE) Urine Urobilinogen 4.0 H (<2.0) EU/dL Ur Leukocyte Esterase NEGATIVE (NEGATIVE) Urine RBC 0-2 (0-2/HPF) Urine WBC 2-4 (0-5/HPF) Ur Epithelial Cells FEW (NONE-FEW) Urine Bacteria FEW (NEGATIVE) Result Diagrams: 06/27/17 11:46 06/27/17 11:46 - Problem List (1) Infected surgical wound SNOMED Code(s): 84687695, 364329509 ICD Code: T81.4XXA - INFECTION FOLLOWING A PROCEDURE, INITIAL ENCOUNTER Status: Acute Current Visit: Yes (2) Back pain SNOMED Code(s): 816881193 ICD Code: M54.9 - DORSALGIA, UNSPECIFIED Status: Acute Current Visit: Yes Qualifiers: Back pain location: low back pain Chronicity: unspecified Back pain laterality: bilateral Sciatica presence: without sciatica Qualified Code(s) : M54.5 - Low back pain (3) Metastatic primary lung cancer SNOMED Code(s): 03325289, 963448678 ICD Code: C34.90 - MALIGNANT NEOPLASM OF UNSP PART OF UNSP BRONCHUS OR LUNG Status: Acute Current Visit: Yes Problem List Initiated/Reviewed/Updated: Yes Orders Last 24hrs: Active Orders 24 hr Category Date Time Status Patient Status [ADT] Routine ADT 06/27/17 17:21 Active Patient Status [ADT] Stat ADT 06/27/17 14:29 Active Intake and Output [RC] QSHIFT Care 06/27/17 17:26 Ordered Oxygen Therapy [RC] PRN Care 06/27/17 17:21 Ordered Pulse Oximetry [RC] PRN Care 06/27/17 17:26 Ordered RT Aerosol Therapy [RC] ASDIRECTED Care 06/27/17 17:28 Ordered Up With Assistance [RC] ASDIRECTED Care 06/27/17 17:21 Ordered VTE/DVT Education [RC] PER UNIT ROUTINE Care 06/27/17 17:21 Ordered Vital Signs [RC] Q4H Care 06/27/17 17:21 Ordered 2 Gram Sodium Diet [DIET] Diet 06/27/17 Dinner Active 2 Gram Sodium Diet [DIET] Diet 06/28/17 Breakfast Active Chest 1V Frontal [CR] Stat Exams 06/27/17 12:31 Taken Lumbar Spine w Cont [CT] Stat Exams 06/27/17 11:47 Taken BASIC METABOLIC PANEL,BMP [CHEM] AM Lab 06/28/17 05:11 Ordered BASIC METABOLIC PANEL,BMP [CHEM] AM Lab 06/29/17 05:11 Ordered BASIC METABOLIC PANEL,BMP [CHEM] AM Lab 06/30/17 05:11 Ordered BASIC METABOLIC PANEL,BMP [CHEM] AM Lab 07/01/17 05:11 Ordered CBC WITH AUTO DIFF [HEME] AM Lab 06/28/17 05:11 Ordered CBC WITH AUTO DIFF [HEME] AM Lab 06/29/17 05:11 Ordered CBC WITH AUTO DIFF [HEME] AM Lab 06/30/17 05:11 Ordered CBC WITH AUTO DIFF [HEME] AM Lab 07/01/17 05:11 Ordered CULTURE BLOOD [BC] Stat Lab 06/27/17 17:28 Ordered CULTURE BLOOD [BC] Stat Lab 06/27/17 17:28 Ordered UA W/MICROSCOPIC [URIN] Stat Lab 06/27/17 13:33 Ordered Albuterol [Ventolin HFA] Med 06/27/17 17:29 Ordered 8 gm INH ASDIRECTED PRN Albuterol/Ipratropium [DuoNeb 3.0-0.5 MG/3 ML] Med 06/27/17 17:21 Ordered 3 ml NEB Q4HRRT PRN Crizotinib [Xalkori] Med 06/28/17 09:00 Ordered 250 mg PO DAILY Finasteride [Proscar] Med 06/28/17 09:00 Ordered 5 mg PO DAILY Hydrochlorothiazide Med 06/28/17 09:00 Ordered 25 mg PO DAILY Potassium Chloride [Klor-Con M20] Med 06/28/17 09:00 Ordered 20 meq PO DAILY Simvastatin [Zocor] Med 06/27/17 21:00 Ordered 20 mg PO BEDTIME Sodium Chloride 0.9% [Saline Flush] Med 06/27/17 11:35 Active 10 ml FLUSH ASDIRECTED PRN Sodium Chloride 0.9% [Saline Flush] Med 06/27/17 17:21 Ordered 10 ml FLUSH ASDIRECTED PRN Sodium Chloride 0.9% [Saline Flush] Med 06/27/17 11:35 Active 2.5 ml FLUSH ASDIRECTED PRN Sodium Chloride 0.9% [Saline Flush] Med 06/27/17 17:21 Ordered 2.5 ml FLUSH ASDIRECTED PRN oxyCODONE Med 06/27/17 17:21 Ordered 5 mg PO Q4H PRN oxyCODONE Med 06/27/17 20:00 Ordered 5 mg PO Q4HR Blood Culture x2 Reflex Set [OM.PC] Stat Oth 06/27/17 17:21 Ordered Peripheral IV Insertion Adult [OM.PC] Routine Oth 06/27/17 17:21 Ordered Saline Lock Insert [OM.PC] Stat Oth 06/27/17 11:37 Ordered Sequential Compression Device [OM.PC] Per Unit Routine Oth 06/27/17 17:26 Ordered Resuscitation Status Routine Resus Stat 06/27/17 17:21 Ordered Medication Orders Sodium Chloride (Saline Flush) 10 ml FLUSH ASDIRECTED PRN PRN Reason: Keep Vein Open Sodium Chloride (Saline Flush) 2.5 ml FLUSH ASDIRECTED PRN PRN Reason: Keep Vein Open Assessment/Plan Comment:: ASSESSMENT AND PLAN INFECTED SURGICAL WOUND FLUID COLLECTION AND WOUND DRAINING - POSSIBLE FISTULA - WILL DO WOUND CULTURE AND BLOOD CULTURE AND WILL START PATIENT ON iV ANTIBIOTICS SUCH ZOSYN 4.5 GRAMS IV Q 6 H AND VANCOMYCIN DOSING PER PHARMACY.SURGERY CONSULT PATIENT WAS TOLD HE NEEDS TO BE TRANSFERRED BUT HE REFUSED AND LATER ON HE SAID HE WILL GO THERE TOMORROW OR HE WILL NOT GO AT ALL. METASTAIC LUNG CANCER ; CONTINUE CHEMOTHERAPY. DVT PROFILAXIS : HEPARIN SQ
[2017-06-27] MEDS ORDERED: Hydrocolloid Dressing 4x4 Bandage TOP ONE (19:16)
[2017-06-27] MEDS ORDERED: oxyCODONE 5 MG Tab PO SCH (20:00)
[2017-06-27] MEDS ORDERED: Dexamethasone 10 MG/ML SDV IVPUSH ONE (20:43)
[2017-06-27] MEDS ORDERED: Piperacillin/Tazobactam 4.5 GM in Sodium Chloride 0.9% 100 ML IV SCH (20:45)
[2017-06-27] MEDS: Potassium Chloride 20 MEQ Tab.ER PO SCH (21:03)
[2017-06-27] MEDS: Simvastatin 20 MG Tab PO SCH (21:04)
[2017-06-27] MEDS: CRIZOTINIB 250 MG PO SCH (21:04)
[2017-06-27] MEDS: oxyCODONE 5 MG Tab PO PRN (21:05)
[2017-06-27] MEDS: Piperacillin/Tazobactam 4.5 GM in Sodium Chloride 0.9% 100 ML IV SCH (21:06)
[2017-06-27] MEDS: Hydrocolloid Dressing 4x4 Bandage TOP PRN (21:15)
--- NOTE | 2017-06-27 22:25 | PCM.CONS ---
H&P History of Present Illness - General Date of Service: 06/27/17 Admit Problem/Dx: Admission Diagnosis/Problem Admission Diagnosis/Problem Metastatic malignant neoplasm Source of Information: Patient History Limitations: Reports: No Limitations - History of Present Illness Initial Comments - Free Text/Narative: Patient is a 87 year old male who presents with progressive lower extremity weakness over the weekend. 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 He underwent surgical debulking of a spinal cord tumor in [place] in May. They were unable to remove all of the tumor and so he received post operative radiation. He was in rehab in [place], discharged home, and was receiving physical therapy. He was doing well and ambulating with a walker. He started chemotherapy on . Over the weekend he became progressively weaker and presented to the ED today with weakness and an inability to ambulate. He denies any numbness or loss of gross motor function. He states that he "stumbles" and cant move his legs. He denies fevers, chills, chest pain , nausea or vomiting. His vitals were stable. His WBC was within normal limits. A CT scan of the lumbar spine showed the followin. Widespread osseous metastatic disease involving the spine and pelvis. Metastatic disease demonstrates a mixed lytic - sclerotic appearance. 2. At L3, the patient has previously undergone posterior decompression. There are mild superior and inferior endplate compression deformities of L3 of uncertain chronicity. At that level, there is a small fluid collection within the posterior subcutaneous tissues that measures 3.4 x 1.6 x 5.8 cm in size. 3. No significant central canal nor high-grade foraminal stenosis. On physical exam he was noted to have some serous appearing drainage on the bed sheets. He has not noticed any drainage at home and doesnt know how his wound appears. back Pain Score (Numeric/FACES): 2 - Related Data Allergies/Adverse Reactions: Allergies Allergy/AdvReac Type Severity Reaction Status Date / Time No Known Allergies Allergy Verified 06/27/17 11:13 Home Medications: Home Meds Finasteride [Proscar] 5 mg PO DAILY 08/07/16 [History] Hydrochlorothiazide 25 mg PO DAILY 08/07/16 [History] Potassium Chloride 20 meq PO DAILY 08/07/16 [History] Simvastatin [Zocor] 20 mg PO BEDTIME 08/07/16 [History] Albuterol [Ventolin HFA] 8 gm INH ASDIRECTED PRN 06/27/17 [History] Crizotinib [Xalkori] 250 mg PO DAILY 06/27/17 [History] oxyCODONE 5 mg PO Q4HR 06/27/17 [History] Past Medical History HEENT History: Reports: Hard of Hearing Other HEENT History: wears hearing aides Cardiovascular History: Reports: High Cholesterol, Hypertension Respiratory History: Reports: None Gastrointestinal History: Reports: None Genitourinary History: Reports: Prostate Disorder Musculoskeletal History: Reports: Other (See Below) Other Musculoskeletal History: 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 (05/26/17) Neurological History: Reports: None Psychiatric History: Reports: None Endocrine/Metabolic History: Reports: None Hematologic History: Reports: None Immunologic History: Reports: None Oncologic (Cancer) History: Reports: Lung Other Oncologic History: 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 to spine Dermatologic History: Reports: None - Infectious Disease History Infectious Disease History: Reports: None - Past Surgical History Head Surgeries/Procedures: Reports: None Respiratory Surgical History: Reports: None GI Surgical History: Reports: Appendectomy, Cholecystectomy Endocrine Surgical History: Reports: None Neurological Surgical History: Reports: None Musculoskeletal Surgical History: Reports: Other (See Below) Other Musculoskeletal Surgeries/Procedures:: back surgery Social & Family History - Family History Family Medical History: Noncontributory - Tobacco Use Smoking Status *Q: Never Smoker Second Hand Smoke Exposure: No - Caffeine Use Caffeine Use: Reports: Coffee Caffeine Use Comment: 3cups/day - Recreational Drug Use Recreational Drug Use: No H&P Review of Systems - Review of Systems: Review Of Systems: ROS reveals no pertinent complaints other than HPI. Exam - Exam Exam: See Below - Vital Signs Vital Signs: Last Vital Signs Temp 36.6 C 06/27/17 20:00 Pulse 75 06/27/17 20:00 Resp 18 06/27/17 20:00 BP 104/61 06/27/17 20:00 Pulse Ox 94 L 06/27/17 20:00 Weight: 71.35 kg - Exam Quality Assessment: Supplemental Oxygen General: Alert, Oriented HEENT: Conjunctiva Clear, Mucosa Moist & [place], Posterior Pharynx Clear, Pupils Equal, Pupils Reactive Lungs: Normal Respiratory Effort Cardiovascular: Regular Rate Back Exam: Other (LOwer back midline incision that appears white with areas of dark tissue. There is redness around the incision which appears to be changes due to radiation therapy. There is no active drainage and I am unable to express fluid from the wound. There is serous drainage on his bed sheets. He has some fluctuance at this level. There is no tenderness to palpation. ) Extremities: Pedal Edema (mild) Neurological: Strength Equal Bilateral (BLE), Normal Speech, Sensation Intact, Other (No gross motor defecits in the BLE). No: Babinski, Clonus Neuro Extensive - Mental Status: Alert, Oriented x3, Normal Mood/Affect, Normal Cognition Psychiatric: Alert, Normal Affect, Normal Mood - Patient Data Lab Results Last 24 hrs: Laboratory Results - last 24 hr 06/27/17 06/27/17 06/27/17 Range/Units 11:46 11:46 11:46 WBC 9.28 (4.0-11.0) K/uL RBC 4.15 L (4.50-5.90) M/uL Hgb 12.1 L (13.0-17.0) g/dL Hct 36.6 L (38.0-50.0) % MCV 88.2 (80.0-98.0) fL MCH 29.2 (27.0-32.0) pg MCHC 33.1 (31.0-37.0) g/dL RDW Std Deviation 47.0 (28.0-62.0) fl RDW Coeff of Estelita 15 (11.0-15.0) % Plt Count 256 (150-400) K/uL MPV 8.40 (7.40-12.00) fL Neut % (Auto) 83.8 H (48.0-80.0) % Lymph % (Auto) 8.0 L (16.0-40.0) % [place] % (Auto) 7.8 (0.0-15.0) % Eos % (Auto) 0.2 (0.0-7.0) % Baso % (Auto) 0.2 (0.0-1.5) % Neut # (Auto) 7.8 H (1.4-5.7) K/uL Lymph # (Auto) 0.7 (0.6-2.4) K/uL [place] # (Auto) 0.7 (0.0-0.8) K/uL Eos # (Auto) 0.0 (0.0-0.7) K/uL Baso # (Auto) 0.0 (0.0-0.1) K/uL Nucleated RBC % 0.0 /100WBC Nucleated RBCs # 0 K/uL Lactate 1.9 (0.20-2.00) mmol/L Sodium 137 (136-148) mmol/L Potassium 3.1 L (3.5-5.1) mmol/L Chloride 99 (98-107) mmol/L Carbon Dioxide 29.4 (21.0-32.0) mmol/L BUN 21 H (7.0-18.0) mg/dL Creatinine 1.0 (0.8-1.3) mg/dL Est Cr Clr Drug Dosing 53.98 mL/min Estimated GFR (MDRD) > 60.0 ml/min Glucose 106 (74-106) mg/dL Calcium 7.5 L (8.5-10.1) mg/dL Magnesium (1.5-2.0) mg/dL Total Bilirubin 1.0 (0.2-1.0) mg/dL AST 80 H (15-37) IU/L ALT 55 (14-63) IU/L Alkaline Phosphatase 306 H (46-116) U/L Total Protein 6.3 L (6.4-8.2) g/dL Albumin 2.1 L (3.4-5.0) g/dL Globulin 4.2 H (2.0-3.5) g/dL Albumin/Globulin Ratio 0.5 L (1.3-2.8) Urine Color Urine Appearance Urine pH (5.0-8.0) Ur Specific [place] (1.001-1.035) Urine Protein (NEGATIVE) mg/dL Urine Glucose (UA) (NEGATIVE) mg/dL Urine Ketones (NEGATIVE) mg/dL Urine Occult Blood (NEGATIVE) Urine Nitrite (NEGATIVE) Urine Bilirubin (NEGATIVE) Urine Urobilinogen (<2.0) EU/dL Ur Leukocyte Esterase (NEGATIVE) Urine RBC (0-2/HPF) Urine WBC (0-5/HPF) Ur Epithelial Cells (NONE-FEW) Urine Bacteria (NEGATIVE) 06/27/17 06/27/17 Range/Units 11:47 13:33 WBC (4.0-11.0) K/uL RBC (4.50-5.90) M/uL Hgb (13.0-17.0) g/dL Hct (38.0-50.0) % MCV (80.0-98.0) fL MCH (27.0-32.0) pg MCHC (31.0-37.0) g/dL RDW Std Deviation (28.0-62.0) fl RDW Coeff of Estelita (11.0-15.0) % Plt Count (150-400) K/uL MPV (7.40-12.00) fL Neut % (Auto) (48.0-80.0) % Lymph % (Auto) (16.0-40.0) % [place] % (Auto) (0.0-15.0) % Eos % (Auto) (0.0-7.0) % Baso % (Auto) (0.0-1.5) % Neut # (Auto) (1.4-5.7) K/uL Lymph # (Auto) (0.6-2.4) K/uL [place] # (Auto) (0.0-0.8) K/uL Eos # (Auto) (0.0-0.7) K/uL Baso # (Auto) (0.0-0.1) K/uL Nucleated RBC % /100WBC Nucleated RBCs # K/uL Lactate (0.20-2.00) mmol/L Sodium (136-148) mmol/L Potassium (3.5-5.1) mmol/L Chloride (98-107) mmol/L Carbon Dioxide (21.0-32.0) mmol/L BUN (7.0-18.0) mg/dL Creatinine (0.8-1.3) mg/dL Est Cr Clr Drug Dosing mL/min Estimated GFR (MDRD) ml/min Glucose (74-106) mg/dL Calcium (8.5-10.1) mg/dL Magnesium 1.9 (1.5-2.0) mg/dL Total Bilirubin (0.2-1.0) mg/dL AST (15-37) IU/L ALT (14-63) IU/L Alkaline Phosphatase (46-116) U/L Total Protein (6.4-8.2) g/dL Albumin (3.4-5.0) g/dL Globulin (2.0-3.5) g/dL Albumin/Globulin Ratio (1.3-2.8) Urine Color YELLOW Urine Appearance CLEAR Urine pH 5.5 (5.0-8.0) Ur Specific [place] 1.015 (1.001-1.035) Urine Protein NEGATIVE (NEGATIVE) mg/dL Urine Glucose (UA) NEGATIVE (NEGATIVE) mg/dL Urine Ketones TRACE H (NEGATIVE) mg/dL Urine Occult Blood NEGATIVE (NEGATIVE) Urine Nitrite NEGATIVE (NEGATIVE) Urine Bilirubin NEGATIVE (NEGATIVE) Urine Urobilinogen 4.0 H (<2.0) EU/dL Ur Leukocyte Esterase NEGATIVE (NEGATIVE) Urine RBC 0-2 (0-2/HPF) Urine WBC 2-4 (0-5/HPF) Ur Epithelial Cells FEW (NONE-FEW) Urine Bacteria FEW (NEGATIVE) Result Diagrams: 06/27/17 11:46 06/27/17 11:46 Gil Results Last 24 hrs: Microbiology 06/27/17 17:45 Anaerobic Blood Culture - Final Blood - Venous Consult PN Assessment/Plan Procedures: Procedures ASSAY OF NATRIURETIC PEPTIDE (05/24/17) BONE BIOPSY TROCAR/NEEDLE (02/04/17) CHEST X-RAY 2VW FRONTAL&LATL (07/06/16) CO/MEMBANE DIFFUSE CAPACITY (07/16/16) COMPLETE CBC W/AUTO DIFF WBC (05/24/17) COMPREHEN METABOLIC PANEL (05/24/17) CT SCAN FOR NEEDLE BIOPSY (02/04/17) ELECTROCARDIOGRAM TRACING (05/24/17) EMERGENCY DEPT VISIT (05/24/17) EMERGENCY DEPT VISIT (08/07/16) EVALUATION OF WHEEZING (07/16/16) HT MUSCLE IMAGE SPECT MULT (10/09/14) HYDRATE IV INFUSION ADD-ON (05/24/17) IMMUNIZATION ADMIN (08/07/16) LIPID PANEL (09/14/16) METABOLIC PANEL TOTAL CA (09/11/14) MRI BRAIN STEM W/O & W/DYE (04/02/17) NJX INTERLAMINAR LMBR/SAC (12/24/16) OFFICE/OUTPATIENT VISIT EST (09/11/14) PET IMAGE W/CT FULL BODY (03/15/17) PROTHROMBIN TIME (05/24/17) PULM FUNCTION TEST BY GAS (07/16/16) ROUTINE VENIPUNCTURE (05/24/17) RPR S/N/AX/GEN/TRNK 2.5CM/< (08/07/16) TDAP VACCINE 7 YRS/> IM (08/07/16) THER/PROPH/DIAG INJ IV PUSH (05/24/17) THER/PROPH/DIAG INJ SC/IM (05/12/17) THROMBOPLASTIN TIME PARTIAL (02/04/17) TTE W/DOPPLER COMPLETE (09/13/14) TX/PRO/DX INJ NEW DRUG ADDON (05/24/17) URINALYSIS AUTO W/SCOPE (05/24/17) VIT D 1 25-DIHYDROXY (03/24/17) VITAMIN D 25 HYDROXY (05/12/17) X-RAY EXAM CHEST 1 VIEW (05/24/17) X-RAY EXAM HIP UNI 2-3 VIEWS (08/26/16) X-RAY EXAM KNEE 4 OR MORE (08/18/16) X-RAY EXAM L-S SPINE 2/3 VWS (08/26/16) (1) Fluid collection at surgical site SNOMED Code(s): 731680439 Code(s): T88.8XXA - OTH COMPLICATIONS OF SURGICAL AND MEDICAL CARE, NEC, INIT Current Visit: Yes (2) Unable to walk SNOMED Code(s): 485240403 Code(s): R26.2 - DIFFICULTY IN WALKING, NOT ELSEWHERE CLASSIFIED Current Visit: Yes (3) Weakness SNOMED Code(s): 96494953 Code(s): R53.1 - WEAKNESS Current Visit: No Problem List Initiated/Reviewed/Updated: Yes Plan: I was asked to see the patient due to the CT findings of a fluid collection. My differential includes a surgical site seroma, abscess, or a CSF fluid collection. I am concerned about the appearance of his surgical scar. Ultimately , I feel he needs to be evaluated by his Neurosurgeon in [place] especially in light of the progressive bilateral lower extremity weakness. I discussed the treatment options with the patient. I recommended transfer to [place], but he has just come came home and is extremely reluctant to go back. Both the hospitalist and I discussed the risks of delaying treatment in light of a possible infection including worsened outcomes, neurologic dysfunction, sepsis and or . We had long conversations with him and the patient adamantly refuses transfer tonight regardless of the risks. I discussed this as well with his daughter Amina and daughter in law Rosa Isela. He was willing to re-open the discussion in the morning but for tonight would like medical care only. He is currently on broad spectrum antibiotics and steroids. I will sign off at this time, but recommend neurosurgical consultation with his surgeon in [place] tomorrow at least. I would send him the images and seek his opinion on the situation. All further cares and management per the hospitalist team.
[2017-06-28] MEDS: Piperacillin/Tazobactam 4.5 GM in Sodium Chloride 0.9% 100 ML IV SCH ×2 (02:26→08:52)
[2017-06-28] MEDS ORDERED: Sodium Chloride 0.9% 500 ML IV SCH (08:15)
[2017-06-28] MEDS: Potassium Chloride 20 MEQ Tab.ER PO SCH (08:38)
[2017-06-28] MEDS: CRIZOTINIB 250 MG PO SCH ×2 (08:58→20:18)
--- NOTE | 2017-06-28 08:59 | PCM.PN ---
- General Info Date of Service: 06/28/17 Admission Dx/Problem (Free Text): Admission Diagnosis/Problem Admission Diagnosis/Problem Metastatic malignant neoplasm Subjective Update: David is donig well this morning, no complaints currently. He is sitting up in wheelchair head to have a shower. No chest pain or SOB. No back pain. Reports his legs feel a little stronger. NO abdominal pain, neck pain or headache. No visual disturbances. I discussed with him I will be calling his Neurosurgeon, Dr Vasquez, at [facility] in [place] regarding CT lumbar spine findings. We discussed if she urged for transfer would he be willing to go and he reported "I do not want to go." I told him I will be back after I speak with Dr Vasquez. Functional Status: Reports: Pain Controlled, Tolerating Diet, Ambulating, Urinating - Review of Systems General: Reports: No Symptoms. Denies: Fever, Fatigue, Malaise HEENT: Reports: No Symptoms. Denies: Headaches, Sore Throat, Visual Changes Pulmonary: Reports: Shortness of Breath ("I'm always a little short in my breath , nothing new.") Cardiovascular: Reports: No Symptoms. Denies: Chest Pain, Palpitations, Edema Gastrointestinal: Reports: No Symptoms. Denies: Abdominal Pain, Nausea, Vomiting Genitourinary: Reports: No Symptoms. Denies: Dysuria, Frequency Musculoskeletal: Reports: Back Pain (intermittent to lumbar spine, Oxycodone is coming up due he reports). Denies: Neck Pain Skin: Reports: No Symptoms Neurological: Reports: No Symptoms Psychiatric: Reports: No Symptoms - Patient Data Vitals - Most Recent: Last Vital Signs Temp 97.3 F 06/28/17 07:59 Pulse 65 06/28/17 07:59 Resp 19 06/28/17 07:59 BP 88/53 L 06/28/17 07:59 Pulse Ox 94 L 06/28/17 07:59 Weight - Most Recent: 71.35 kg I&O - Last 24 Hours: Intake & Output 06/27/17 06/28/17 06/28/17 22:59 06:59 14:59 Intake Total 100 400 Output Total 450 Balance 100 -50 Lab Results Last 24 Hours: Laboratory Results - last 24 hr 06/27/17 06/27/17 06/27/17 Range/Units 11:46 11:46 11:46 WBC 9.28 (4.0-11.0) K/uL RBC 4.15 L (4.50-5.90) M/uL Hgb 12.1 L (13.0-17.0) g/dL Hct 36.6 L (38.0-50.0) % MCV 88.2 (80.0-98.0) fL MCH 29.2 (27.0-32.0) pg MCHC 33.1 (31.0-37.0) g/dL RDW Std Deviation 47.0 (28.0-62.0) fl RDW Coeff of Estelita 15 (11.0-15.0) % Plt Count 256 (150-400) K/uL MPV 8.40 (7.40-12.00) fL Neut % (Auto) 83.8 H (48.0-80.0) % Lymph % (Auto) 8.0 L (16.0-40.0) % Donley % (Auto) 7.8 (0.0-15.0) % Eos % (Auto) 0.2 (0.0-7.0) % Baso % (Auto) 0.2 (0.0-1.5) % Neut # (Auto) 7.8 H (1.4-5.7) K/uL Lymph # (Auto) 0.7 (0.6-2.4) K/uL Donley # (Auto) 0.7 (0.0-0.8) K/uL Eos # (Auto) 0.0 (0.0-0.7) K/uL Baso # (Auto) 0.0 (0.0-0.1) K/uL Add Manual Diff Neutrophils % (Manual) (48.0-80.0) % Band Neutrophils % % Lymphocytes % (Manual) (16.0-40.0) % Monocytes % (Manual) (0.0-15.0) % Basophils % (Manual) (0.0-1.5) % Nucleated RBC % 0.0 /100WBC Absolute Seg Neuts (1.4-5.7) Band Neutrophils # Lymphocytes # (Manual) (0.6-2.4) Monocytes # (Manual) (0.0-0.8) Basophils # (Manual) (0.0-0.1) Nucleated RBCs # 0 K/uL Lactate 1.9 (0.20-2.00) mmol/L Sodium 137 (136-148) mmol/L Potassium 3.1 L (3.5-5.1) mmol/L Chloride 99 (98-107) mmol/L Carbon Dioxide 29.4 (21.0-32.0) mmol/L BUN 21 H (7.0-18.0) mg/dL Creatinine 1.0 (0.8-1.3) mg/dL Est Cr Clr Drug Dosing 53.98 mL/min Estimated GFR (MDRD) > 60.0 ml/min Glucose 106 (74-106) mg/dL Calcium 7.5 L (8.5-10.1) mg/dL Magnesium (1.5-2.0) mg/dL Total Bilirubin 1.0 (0.2-1.0) mg/dL AST 80 H (15-37) IU/L ALT 55 (14-63) IU/L Alkaline Phosphatase 306 H (46-116) U/L Total Protein 6.3 L (6.4-8.2) g/dL Albumin 2.1 L (3.4-5.0) g/dL Globulin 4.2 H (2.0-3.5) g/dL Albumin/Globulin Ratio 0.5 L (1.3-2.8) Urine Color Urine Appearance Urine pH (5.0-8.0) Ur Specific Seaside (1.001-1.035) Urine Protein (NEGATIVE) mg/dL Urine Glucose (UA) (NEGATIVE) mg/dL Urine Ketones (NEGATIVE) mg/dL Urine Occult Blood (NEGATIVE) Urine Nitrite (NEGATIVE) Urine Bilirubin (NEGATIVE) Urine Urobilinogen (<2.0) EU/dL Ur Leukocyte Esterase (NEGATIVE) Urine RBC (0-2/HPF) Urine WBC (0-5/HPF) Ur Epithelial Cells (NONE-FEW) Urine Bacteria (NEGATIVE) 06/27/17 06/27/17 06/28/17 Range/Units 11:47 13:33 05:44 WBC 7.50 (4.0-11.0) K/uL RBC 3.70 L (4.50-5.90) M/uL Hgb 10.9 L (13.0-17.0) g/dL Hct 33.4 L (38.0-50.0) % MCV 90.3 (80.0-98.0) fL MCH 29.5 (27.0-32.0) pg MCHC 32.6 (31.0-37.0) g/dL RDW Std Deviation 45.2 (28.0-62.0) fl RDW Coeff of Estelita 14 (11.0-15.0) % Plt Count 294 (150-400) K/uL MPV 8.30 (7.40-12.00) fL Neut % (Auto) (48.0-80.0) % Lymph % (Auto) (16.0-40.0) % Donley % (Auto) (0.0-15.0) % Eos % (Auto) (0.0-7.0) % Baso % (Auto) (0.0-1.5) % Neut # (Auto) (1.4-5.7) K/uL Lymph # (Auto) (0.6-2.4) K/uL Donley # (Auto) (0.0-0.8) K/uL Eos # (Auto) (0.0-0.7) K/uL Baso # (Auto) (0.0-0.1) K/uL Add Manual Diff YES Neutrophils % (Manual) 82 H (48.0-80.0) % Band Neutrophils % 3 % Lymphocytes % (Manual) 12 L (16.0-40.0) % Monocytes % (Manual) 2 (0.0-15.0) % Basophils % (Manual) 1 (0.0-1.5) % Nucleated RBC % /100WBC Absolute Seg Neuts 6.2 H (1.4-5.7) Band Neutrophils # 0.2 Lymphocytes # (Manual) 0.9 (0.6-2.4) Monocytes # (Manual) 0.2 (0.0-0.8) Basophils # (Manual) 0.1 (0.0-0.1) Nucleated RBCs # K/uL Lactate (0.20-2.00) mmol/L Sodium (136-148) mmol/L Potassium (3.5-5.1) mmol/L Chloride (98-107) mmol/L Carbon Dioxide (21.0-32.0) mmol/L BUN (7.0-18.0) mg/dL Creatinine (0.8-1.3) mg/dL Est Cr Clr Drug Dosing mL/min Estimated GFR (MDRD) ml/min Glucose (74-106) mg/dL Calcium (8.5-10.1) mg/dL Magnesium 1.9 (1.5-2.0) mg/dL Total Bilirubin (0.2-1.0) mg/dL AST (15-37) IU/L ALT (14-63) IU/L Alkaline Phosphatase (46-116) U/L Total Protein (6.4-8.2) g/dL Albumin (3.4-5.0) g/dL Globulin (2.0-3.5) g/dL Albumin/Globulin Ratio (1.3-2.8) Urine Color YELLOW Urine Appearance CLEAR Urine pH 5.5 (5.0-8.0) Ur Specific Seaside 1.015 (1.001-1.035) Urine Protein NEGATIVE (NEGATIVE) mg/dL Urine Glucose (UA) NEGATIVE (NEGATIVE) mg/dL Urine Ketones TRACE H (NEGATIVE) mg/dL Urine Occult Blood NEGATIVE (NEGATIVE) Urine Nitrite NEGATIVE (NEGATIVE) Urine Bilirubin NEGATIVE (NEGATIVE) Urine Urobilinogen 4.0 H (<2.0) EU/dL Ur Leukocyte Esterase NEGATIVE (NEGATIVE) Urine RBC 0-2 (0-2/HPF) Urine WBC 2-4 (0-5/HPF) Ur Epithelial Cells FEW (NONE-FEW) Urine Bacteria FEW (NEGATIVE) 06/28/17 Range/Units 05:44 WBC (4.0-11.0) K/uL RBC (4.50-5.90) M/uL Hgb (13.0-17.0) g/dL Hct (38.0-50.0) % MCV (80.0-98.0) fL MCH (27.0-32.0) pg MCHC (31.0-37.0) g/dL RDW Std Deviation (28.0-62.0) fl RDW Coeff of Estelita (11.0-15.0) % Plt Count (150-400) K/uL MPV (7.40-12.00) fL Neut % (Auto) (48.0-80.0) % Lymph % (Auto) (16.0-40.0) % Donley % (Auto) (0.0-15.0) % Eos % (Auto) (0.0-7.0) % Baso % (Auto) (0.0-1.5) % Neut # (Auto) (1.4-5.7) K/uL Lymph # (Auto) (0.6-2.4) K/uL Donley # (Auto) (0.0-0.8) K/uL Eos # (Auto) (0.0-0.7) K/uL Baso # (Auto) (0.0-0.1) K/uL Add Manual Diff Neutrophils % (Manual) (48.0-80.0) % Band Neutrophils % % Lymphocytes % (Manual) (16.0-40.0) % Monocytes % (Manual) (0.0-15.0) % Basophils % (Manual) (0.0-1.5) % Nucleated RBC % /100WBC Absolute Seg Neuts (1.4-5.7) Band Neutrophils # Lymphocytes # (Manual) (0.6-2.4) Monocytes # (Manual) (0.0-0.8) Basophils # (Manual) (0.0-0.1) Nucleated RBCs # K/uL Lactate (0.20-2.00) mmol/L Sodium 138 (136-148) mmol/L Potassium 4.6 (3.5-5.1) mmol/L Chloride 103 (98-107) mmol/L Carbon Dioxide 29.4 (21.0-32.0) mmol/L BUN 20 H (7.0-18.0) mg/dL Creatinine 1.2 (0.8-1.3) mg/dL Est Cr Clr Drug Dosing 42.12 mL/min Estimated GFR (MDRD) 57.0 ml/min Glucose 155 H (74-106) mg/dL Calcium 7.3 L (8.5-10.1) mg/dL Magnesium (1.5-2.0) mg/dL Total Bilirubin (0.2-1.0) mg/dL AST (15-37) IU/L ALT (14-63) IU/L Alkaline Phosphatase (46-116) U/L Total Protein (6.4-8.2) g/dL Albumin (3.4-5.0) g/dL Globulin (2.0-3.5) g/dL Albumin/Globulin Ratio (1.3-2.8) Urine Color Urine Appearance Urine pH (5.0-8.0) Ur Specific [place] (1.001-1.035) Urine Protein (NEGATIVE) mg/dL Urine Glucose (UA) (NEGATIVE) mg/dL Urine Ketones (NEGATIVE) mg/dL Urine Occult Blood (NEGATIVE) Urine Nitrite (NEGATIVE) Urine Bilirubin (NEGATIVE) Urine Urobilinogen (<2.0) EU/dL Ur Leukocyte Esterase (NEGATIVE) Urine RBC (0-2/HPF) Urine WBC (0-5/HPF) Ur Epithelial Cells (NONE-FEW) Urine Bacteria (NEGATIVE) Gil Results Last 24 Hours: Microbiology 06/27/17 17:45 Anaerobic Blood Culture - Final Blood - Venous Med Orders - Current: Current Medications Albuterol (Ventolin Hfa) 0 gm INH ASDIRECTED PRN PRN Reason: Shortness of Breath Albuterol/Ipratropium (Duoneb 3.0-0.5 Mg/3 Ml) 3 ml NEB Q4HRRT PRN PRN Reason: Shortness Of Breath/wheezing Piperacillin Sod/Tazobactam (Sod 4.5 gm/ Sodium Chloride) 100 mls @ 100 mls/hr IV Q6H [facility] Last Admin: 06/28/17 02:26 Dose: 100 mls/hr Vancomycin HCl 1 gm/ Sodium (Chloride) 250 mls @ 166 mls/hr IV Q12H [facility] Last Admin: 06/27/17 22:52 Dose: 166 mls/hr Crizotinib [Xalkori] 250 Mg Cap Own Med 250 mg PO BID [facility] Last Admin: 06/27/17 21:04 Dose: 250 mg Oxycodone HCl (Oxycodone) 5 mg PO Q4H PRN PRN Reason: Pain (moderate 4-6) Last Admin: 06/27/17 21:05 Dose: 5 mg Potassium Chloride (Klor-Con M20) 40 meq PO DAILY [facility] Last Admin: 06/28/17 08:38 Dose: 40 meq Simvastatin (Zocor) 20 mg PO BEDTIME [facility] Last Admin: 06/27/17 21:04 Dose: 20 mg Sodium Chloride (Saline Flush) 10 ml FLUSH ASDIRECTED PRN PRN Reason: Keep Vein Open Sodium Chloride (Saline Flush) 2.5 ml FLUSH ASDIRECTED PRN PRN Reason: Keep Vein Open Vancomycin HCl (Pharmacy To Dose - Vancomycin) 0 dose .XX ASDIRECTED [facility] Wound Care/Dressing Products (Duoderm Cgf) 1 each TOP ASDIRECTED PRN PRN Reason: Other Last Admin: 06/27/17 21:15 Dose: 1 each Discontinued Medications Dexamethasone (Dexamethasone) 10 mg IVPUSH ONETIME ONE Stop: 06/27/17 20:44 Last Admin: 06/27/17 21:03 Dose: 10 mg Finasteride (Proscar) 5 mg PO DAILY RAJIV Hydrochlorothiazide (Hydrochlorothiazide) 25 mg PO DAILY [facility]JIV Sodium Chloride (Normal Saline) 500 mls @ 250 mls/hr IV .BOLUS RAJIV Last Admin: 06/28/17 08:39 Dose: 250 mls/hr Iopamidol (Isovue Multipack-370 (76%)) 200 ml IVPUSH ONETIME ONE Stop: 06/27/17 13:15 Last Admin: 06/27/17 13:19 Dose: 70 ml Oxycodone HCl (Oxycodone) 5 mg PO Q4HR [facility] Potassium Chloride (Klor-Con M20) 20 meq PO ONETIME ONE Stop: 06/27/17 12:51 Last Admin: 06/27/17 13:23 Dose: 20 meq Potassium Chloride (Klor-Con M20) 20 meq PO DAILY RAJIV Sodium Chloride (Saline Flush) 10 ml FLUSH ASDIRECTED PRN PRN Reason: Keep Vein Open Sodium Chloride (Saline Flush) 2.5 ml FLUSH ASDIRECTED PRN PRN Reason: Keep Vein Open Wound Care/Dressing Products (Duoderm Cgf) 1 each TOP ASDIRECTED ONE Stop: 06/27/17 19:17 Last Admin: 06/27/17 23:37 Dose: Not Given - Exam General: Alert, Oriented, Cooperative, No Acute Distress HEENT: Pupils Equal Neck: Supple Lungs: Clear to Auscultation, Normal Respiratory Effort Cardiovascular: Regular Rate, Regular Rhythm GI/Abdominal Exam: Normal Bowel Sounds, Soft, Non-Tender Back Exam: Decreased Range of Motion (due to pain, but able to lean forward in chair for me to exam incision) Extremities: Normal Inspection, Normal Range of Motion, Non-Tender, Normal Capillary Refill, Pedal Edema (+1-2 pitting) Wound/Incisions: Erythema Improving (Old lumbar spine incision, approximately 1/ 2 in width and 3.5 in in length. Noted to have white tissue within incision with small amount of dark but not necessarily necrotic tissu in the center. Unable to express any drainage on palpation of wound, no tenderness to patient. Some serous drainage note don gauze dressing. Some fluctuance noted to top/left of incision, again no pain and not able to express drainage. ), Decubitis ( Right sacral 1x2 cm ulcer, duoderm intact.) Neurological: No New Focal Deficit Psy/Mental Status: Alert, Normal Affect, Normal Mood - Problem List & Annotations (1) Infected surgical wound SNOMED Code(s): 14812867, 819789781 Code(s): T81.4XXA - INFECTION FOLLOWING A PROCEDURE, INITIAL ENCOUNTER Status: Acute Current Visit: Yes Qualifiers: Encounter type: initial encounter Qualified Code(s): T81.4XXA - Infection following a procedure, initial encounter (2) Fluid collection at surgical site SNOMED Code(s): 341694586 Code(s): T88.8XXA - OT COMPLICATIONS OF SURGICAL AND MEDICAL CARE, NEC, INIT Status: Acute Current Visit: Yes (3) Back pain SNOMED Code(s): 848831087 Code(s): M54.9 - DORSALGIA, UNSPECIFIED Status: Acute Current Visit: Yes Qualifiers: Back pain location: low back pain Chronicity: unspecified Back pain laterality: bilateral Sciatica presence: without sciatica Qualified Code(s) : M54.5 - Low back pain (4) Weakness SNOMED Code(s): 96563394 Code(s): R53.1 - WEAKNESS Status: Acute Current Visit: No (5) HTN (hypertension) SNOMED Code(s): 75773045 Code(s): I10 - ESSENTIAL (PRIMARY) HYPERTENSION Status: Chronic Current Visit: Yes Qualifiers: Hypertension type: essential hypertension Qualified Code(s): I10 - Essential (primary) hypertension (6) Hypercholesteremia SNOMED Code(s): 86965490 Code(s): E78.00 - PURE HYPERCHOLESTEROLEMIA, UNSPECIFIED Status: Chronic Current Visit: Yes (7) Metastatic primary lung cancer SNOMED Code(s): 98413930, 921476193 Code(s): C34.90 - MALIGNANT NEOPLASM OF UNSP PART OF UNSP BRONCHUS OR LUNG Status: Chronic Current Visit: Yes Qualifiers: Laterality: unspecified laterality Qualified Code(s): C34.90 - Malignant neoplasm of unspecified part of unspecified bronchus or lung (8) Osseous metastasis Status: Chronic Current Visit: Yes Annotation/Comment:: spine - Problem List Review Problem List Initiated/Reviewed/Updated: Yes - Plan Plan:: This 87 year old male admitted with probable surgical site infected with generalized weakness and back pain 1. Probable surgical site infection to Lumbar spine: Surgery in [facility] for partial removal of spinal tumor, with radiation and chemotherapy following this while in rehabilitation center. Was discharged to home on WednesdayJune 25. No fevers at home, but having increased pain at incision site. No focal neurological affects, but having some generalized weakness to legs. Afebrile today. No leukocytosis. Continue with Vancomycin and Zosyn. Will lower dose of Zosyn due ot renal function to 3.375 IV Q6 hr. Blood cultures and wound cultures pending. [facility] continues to decline transfer. I am awaiting call from Dr Vasquez to discuss CT findings and her recommendations. If patient continues to decline transfer, will discuss comfort measures vs Hospice care. General surgery , Dr Hayes consulted here and recommended transfer back to [place] with Neurosurgery. 2. Generalized weakness: Improving. Family feels they are unable to care for him at home. There is no one who can stay with him long-term at home and are requesting admission to SNF for rehabilitation. Will likely consult PT to evaluate and treat. WIll await call from Dr Vasquez. 3. Metastatic lung CA: Has extensive spinal/pelvic metastasis. 4. HTN: Noted to be hypotensive this am, sitting up in chair. Asymptomatic. Will hold Proscar and HCTZ this morning and monitor. Will give NS 500 bolus slowly. VTE prophylaxis: Heparin Dispo: 2-4 days pending improvement. 1055: Dr Vasquez called back after reviewing CT scan of lumbar spine. She recommended obtaining MRI w and w/o contrast to fully evaluate the spine and possible fluid collection. She reports, surgically there is really nothing more she would be able to do for him because of the extensive metastatic disease to the spine. She reports she recommends speaking with the family and patient about how aggressive they are wanting to be otherwise she would recommend more comfort measures. In the mean time she will review the MRI when it is completed and images sent to [facility]. She did recommend Decadron 4 mg Q6 hrs IV for now due to weakness. I notified [facility] of this conversation and he is willing to have MRI and again reiterated he does not want to go back to [place]. Will conitnue to monitor. Dr Do updated on this conversation. Continue Vancomycin and Zosyn for now.
[2017-06-28] MEDS ORDERED: Finasteride 5 MG Tab PO SCH (09:00)
[2017-06-28] MEDS ORDERED: Potassium Chloride 20 MEQ Tab.ER PO SCH (09:00)
[2017-06-28] MEDS ORDERED: Hydrochlorothiazide 25 MG Tab PO SCH (09:00)
[2017-06-28] MEDS ORDERED: Dexamethasone 10 MG/ML SDV IVPUSH ONE (10:14)
[2017-06-28] MEDS: Piperacillin/Tazobactam 3.375 GM in Sodium Chloride 0.9% 50 ML IV SCH ×3 (13:18→23:59)
--- NOTE | 2017-06-28 13:43 | MR ---
EXAMINATION: MRI lumbar spine with and without contrast HISTORY: Spinal metastases COMPARISON: CT dated 06/27/2017 TECHNIQUE: Multiplanar multisequence imaging obtained through the lumbar spine before and following t he administration of 11 mL of MultiHance. FINDINGS: There is straightening of the normal lumbar lordosis. Minimal compression noted of the L3 v ertebral body. Extensive osseous metastatic changes are noted throughout the visualized lumbar and sa cral spine. Multifocal areas of enhancement noted. There is diffuse involvement of the L3 vertebral b jessica with overlying laminectomy changes. There is a bilobed fluid collection measuring 1.8 cm within t he epidural space extending to the superficial tissues measuring 1.8 x 4.3 by roughly 6.5 cm. This de monstrates peripheral enhancement. There is mild enhancement within the psoas musculature also noted. The distal spinal cord appears normal and the conus terminates at L2. T12-L1: Tiny diffuse disc bulge without significant spinal canal or neural foraminal stenosis. L1-L2: Small diffuse disc bulge without significant spinal canal stenosis. Minimal right neural jorge inal stenosis. L2-L3: Small diffuse disc bulge without significant spinal canal stenosis. Moderate right and mild le ft neural foraminal stenosis. L3-L4: Small diffuse disc bulge without significant spinal canal stenosis. Moderate to severe bilater al neural foraminal stenosis. L4-L5: Tiny diffuse disc bulge without significant spinal canal stenosis. Mild left neural foraminal stenosis. L5-S1: Small midline disc protrusion with an annular tear without significant spinal canal stenosis. Mild bilateral neural foraminal stenosis. IMPRESSION: 1. Extensive osseous metastatic disease noted within the lumbosacral spine with near complete marrow replacement within the L3 vertebral body. 2. Bilobed epidural to superficial fluid collection noted within the postoperative bed at L3. Differe ntial includes seroma/hematoma, or abscess.
[2017-06-28] MEDS: oxyCODONE 5 MG Tab PO PRN ×2 (13:49→21:49)
--- NOTE | 2017-06-28 15:01 | CR ---
EXAM DATE: 06/27/17 PATIENT'S AGE: 87 Patient: [facility] Facility: [place], [place] Site . Site : 1930 Study: XRay Chest [id number]/22/2018 1:16:46 PM Ordering Physician: Bryanna Hernandez Final Report: HISTORY: Pain and shortness of breath. TECHNIQUE: One view of the chest. COMPARISON: 05/24/2017. FINDINGS: Decreased size of left-sided pleural effusion with a small amount of residual pleural fluid and left basilar atelectasis. Right lung appears clear. No pneumothorax. Cardiac size is within normal limits. IMPRESSION: Diminished small left pleural effusion with left basilar atelectasis. Dictated by Michael Monaco MD @ 06/27/2017 1:27:16 PM Dictated by: Michael Monaco MD @ 06/27/2017 13:27:21 (Electronic Signature) Report Signed by Proxy. KSENIA
--- NOTE | 2017-06-28 15:02 | CT ---
EXAM DATE: 06/27/17 PATIENT'S AGE: 87 Patient: [facility] Facility: [place], [place] Site . Site : 1930 Study: CT Spine Lumbar WITH [id number]/22/2018 1:18:28 PM Ordering Physician: Bryanna Hernandez Final Report: HISTORY: Back pain. History of metastatic disease to the lumbar spine. TECHNIQUE: Noncontrast CT of the lumbar spine. COMPARISON: No prior CT available for comparison at time of dictation. FINDINGS: There is widespread osseous metastatic disease involving the thoracic and lumbar spine and also involving the sacrum and iliac bones. The metastatic disease demonstrates a mixed lytic-sclerotic appearance. - Patient has undergone posterior decompression at the L3 level. At that level, there is a small fluid collection within the posterior subcutaneous tissues that measures 3.4 x 1.6 x 5.8 cm in size. There are mild superior and inferior endplate compression deformities of L3 of uncertain chronicity. No significant posterior retropulsion of the posterior aspect of L3. - Degenerative disc and joint disease is present within the lumbar spine. - At L5-S1, loss of disc height. Calcified central disc protrusion or extrusion mildly abuts the ventral thecal sac. Mild right foraminal narrowing. Left neural foramina patent. At L4-L5, mild annular disc bulge. No central canal stenosis. No significant foraminal stenosis. At L3-L4, mild bilateral foraminal narrowing. Central canal patent. At L2-L3, mild annular disc bulge. Central canal patent. Neural foramina patent. At L1-L2, mild annular disc bulge. No central canal or foraminal stenosis. At T12-L1, mild annular disc bulge. No central canal or foraminal stenosis. IMPRESSION: 1. Widespread osseous metastatic disease involving the spine and pelvis. Metastatic disease demonstrates a mixed lytic - sclerotic appearance. 2. At L3, the patient has previously undergone posterior decompression. There are mild superior and inferior endplate compression deformities of L3 of uncertain chronicity. At that level, there is a small fluid collection within the posterior subcutaneous tissues that measures 3.4 x 1.6 x 5.8 cm in size. 3. No significant central canal nor high-grade foraminal stenosis. Dictated by Michael Monaco MD @ 06/27/2017 1:37:28 PM Please note that all CT scans at this facility use dose modulation, iterative reconstruction, and/or weight-based dosing when appropriate to reduce radiation dose to as low as reasonably achievable. Dictated by: Michael Monaco MD @ 06/27/2017 13:37:37 (Electronic Signature) Report Signed by Proxy. [facility]
--- NOTE | 2017-06-28 15:07 | PCM.SN ---
- Free Text/Narrative Note: MRI completed and spoke with Dr Vasquez regarding results. She reports it looks really good. The tumor that was once there is no longer seen on L3 and no significant stenosis noted. Regarding the fluid collection, she feels this is not CSF leak no immediate drainage is needed but if someone here is willing to drain it that would be beneficial otherwise if [facility] is willing to be transfer they could look after it. Continue with Vancomycin and Zosyn and monitor wound. I spoke with Dr Kyle Whitley, who is willing to do a needle aspiration/drainage of this fluid. He reports it is very superficial and in the postoperative bed of L3. [place] continues to decline transfer to [place] but he is willing to have drainage of wound for cultures here with Dr Whitley. We will obtain cultures of fluid obtained. Discussed with Dr Do and she is in agreement with plan. I attempted to call Amina, daughter, at 1454 to update her on the treatment plan, there was no answer. Notified Dr Do, if she were to call later, to update her with plan.
[2017-06-28] MEDS ORDERED: Dexamethasone 10 MG/ML SDV IVPUSH SCH (17:00)
[2017-06-28] MEDS: Dexamethasone 4 MG/ML SDV IVPUSH SCH ×2 (17:11→23:56)
[2017-06-28] MEDS: Simvastatin 20 MG Tab PO SCH (20:18)
[2017-06-29] MEDS: Dexamethasone 4 MG/ML SDV IVPUSH SCH (05:05)
[2017-06-29] MEDS: Piperacillin/Tazobactam 3.375 GM in Sodium Chloride 0.9% 50 ML IV SCH ×3 (05:08→17:33)
[2017-06-29] MEDS: Pantoprazole 40 MG Tab.CR PO SCH (06:30)
[2017-06-29 06:59] LABS: CHLORIDE,CL 105 mmol/L (98-107); SODIUM,NA 138 mmol/L (136-148)
[2017-06-29] MEDS ORDERED: Calcium Carbonate 500 MG Tab.Chew PO ONE (07:54)
--- NOTE | 2017-06-29 08:21 | PCM.PN ---
- General Info Date of Service: 06/29/17 Admission Dx/Problem (Free Text): Admission Diagnosis/Problem Admission Diagnosis/Problem Metastatic malignant neoplasm Subjective Update: Elizabeth is alert and sitting up in bed. Feel good today, pain is 2/10 to back. He feels his weakness is improving. No chest pain or SOB. NO cough. Functional Status: Reports: Pain Controlled, Tolerating Diet, Ambulating, Urinating - Review of Systems General: Reports: Weakness (generalized). Denies: Fever HEENT: Reports: No Symptoms. Denies: Headaches, Sore Throat, Visual Changes Pulmonary: Reports: No Symptoms. Denies: Shortness of Breath Cardiovascular: Reports: Edema (always has to legs, R > L). Denies: Chest Pain , Lightheadedness Gastrointestinal: Reports: Constipation. Denies: Abdominal Pain, Nausea, Vomiting Genitourinary: Reports: No Symptoms. Denies: Dysuria, Frequency, Burning Musculoskeletal: Reports: Back Pain (2/10 today. ) Neurological: Reports: No Symptoms Psychiatric: Reports: No Symptoms - Patient Data Vitals - Most Recent: Last Vital Signs Temp 97.6 F 06/29/17 03:36 Pulse 64 06/29/17 03:36 Resp 18 06/29/17 03:36 BP 103/52 L 06/29/17 03:36 Pulse Ox 96 06/29/17 03:36 Weight - Most Recent: 71.35 kg I&O - Last 24 Hours: Intake & Output 06/28/17 06/29/17 06/29/17 22:59 06:59 14:59 Intake Total 550 440 Output Total 575 300 Balance -25 140 Lab Results Last 24 Hours: Laboratory Results - last 24 hr 06/29/17 06/29/17 Range/Units 06:00 06:00 WBC 11.42 H (4.0-11.0) K/uL RBC 3.91 L (4.50-5.90) M/uL Hgb 11.3 L (13.0-17.0) g/dL Hct 34.7 L (38.0-50.0) % MCV 88.7 (80.0-98.0) fL MCH 28.9 (27.0-32.0) pg MCHC 32.6 (31.0-37.0) g/dL RDW Std Deviation 47.6 (28.0-62.0) fl RDW Coeff of Estelita 15 (11.0-15.0) % Plt Count 328 (150-400) K/uL MPV 8.70 (7.40-12.00) fL Neut % (Auto) 91.1 H (48.0-80.0) % Lymph % (Auto) 4.9 L (16.0-40.0) % [place] % (Auto) 3.9 (0.0-15.0) % Eos % (Auto) 0.0 (0.0-7.0) % Baso % (Auto) 0.1 (0.0-1.5) % Neut # (Auto) 10.4 H (1.4-5.7) K/uL Lymph # (Auto) 0.6 (0.6-2.4) K/uL [place] # (Auto) 0.5 (0.0-0.8) K/uL Eos # (Auto) 0.0 (0.0-0.7) K/uL Baso # (Auto) 0.0 (0.0-0.1) K/uL Nucleated RBC % 0.0 /100WBC Nucleated RBCs # 0 K/uL Sodium 138 (136-148) mmol/L Potassium 4.4 (3.5-5.1) mmol/L Chloride 105 (98-107) mmol/L Carbon Dioxide 28.8 (21.0-32.0) mmol/L BUN 20 H (7.0-18.0) mg/dL Creatinine 1.0 (0.8-1.3) mg/dL Est Cr Clr Drug Dosing 50.54 mL/min Estimated GFR (MDRD) > 60.0 ml/min Glucose 148 H (74-106) mg/dL Calcium 7.1 L (8.5-10.1) mg/dL Gil Results Last 24 Hours: Microbiology 06/28/17 16:40 Gram Stain - Preliminary Back 06/27/17 17:52 Aerobic Blood Culture - Preliminary Blood - Venous - Lab Draw NO GROWTH AFTER 1 DAY Anaerobic Blood Culture - Preliminary NO GROWTH AFTER 1 DAY 06/27/17 17:45 Aerobic Blood Culture - Preliminary Blood - Venous NO GROWTH AFTER 1 DAY Anaerobic Blood Culture - Final Med Orders - Current: Current Medications Albuterol (Ventolin Hfa) 0 gm INH ASDIRECTED PRN PRN Reason: Shortness of Breath Albuterol/Ipratropium (Duoneb 3.0-0.5 Mg/3 Ml) 3 ml NEB Q4HRRT PRN PRN Reason: Shortness Of Breath/wheezing Dexamethasone (Dexamethasone) 4 mg IVPUSH Q6H [facility] Last Admin: 06/29/17 05:05 Dose: 4 mg Finasteride (Proscar) 5 mg PO DAILY [facility] Vancomycin HCl 1 gm/ Sodium (Chloride) 250 mls @ 166 mls/hr IV Q12H [facility] Last Infusion: 06/28/17 22:05 Dose: Infused Piperacillin Sod/Tazobactam (Sod 3.375 gm/ Sodium Chloride) 50 mls @ 100 mls/ hr IV Q6H [facility] Last Infusion: 06/29/17 05:40 Dose: Infused Crizotinib [Xalkori] 250 Mg Cap Own Med 250 mg PO BID [facility] Last Admin: 06/28/17 20:18 Dose: 250 mg Oxycodone HCl (Oxycodone) 5 mg PO Q4H PRN PRN Reason: Pain (moderate 4-6) Last Admin: 06/28/17 21:49 Dose: 5 mg Pantoprazole Sodium (Protonix) 40 mg PO ACBREAKFAST [facility] Last Admin: 06/29/17 06:30 Dose: 40 mg Potassium Chloride (Klor-Con M20) 40 meq PO DAILY [facility] Last Admin: 06/28/17 08:38 Dose: 40 meq Simvastatin (Zocor) 20 mg PO BEDTIME [facility] Last Admin: 06/28/17 20:18 Dose: 20 mg Sodium Chloride (Saline Flush) 10 ml FLUSH ASDIRECTED PRN PRN Reason: Keep Vein Open Sodium Chloride (Saline Flush) 2.5 ml FLUSH ASDIRECTED PRN PRN Reason: Keep Vein Open Vancomycin HCl (Pharmacy To Dose - Vancomycin) 0 dose .XX ASDIRECTED [facility] Wound Care/Dressing Products (Duoderm Cgf) 1 each TOP ASDIRECTED PRN PRN Reason: Other Last Admin: 06/27/17 21:15 Dose: 1 each Discontinued Medications Calcium Carbonate/Glycine (Tums) 1,000 mg PO ONETIME ONE Stop: 06/29/17 07:55 Dexamethasone (Dexamethasone) 10 mg IVPUSH ONETIME ONE Stop: 06/27/17 20:44 Last Admin: 06/27/17 21:03 Dose: 10 mg Dexamethasone (Dexamethasone) 10 mg IVPUSH ONETIME ONE Stop: 06/28/17 10:15 Last Admin: 06/28/17 10:26 Dose: 10 mg Dexamethasone (Dexamethasone) 4 mg IVPUSH Q6H [facility] Finasteride (Proscar) 5 mg PO DAILY [facility] Hydrochlorothiazide (Hydrochlorothiazide) 25 mg PO DAILY [facility] Piperacillin Sod/Tazobactam (Sod 4.5 gm/ Sodium Chloride) 100 mls @ 100 mls/hr IV Q6H [facility] Last Admin: 06/28/17 08:52 Dose: 100 mls/hr Sodium Chloride (Normal Saline) 500 mls @ 250 mls/hr IV .BOLUS [facility] Last Admin: 06/28/17 08:39 Dose: 250 mls/hr Iopamidol (Isovue Multipack-370 (76%)) 200 ml IVPUSH ONETIME ONE Stop: 06/27/17 13:15 Last Admin: 06/27/17 13:19 Dose: 70 ml Oxycodone HCl (Oxycodone) 5 mg PO Q4HR [facility] Potassium Chloride (Klor-Con M20) 20 meq PO ONETIME ONE Stop: 06/27/17 12:51 Last Admin: 06/27/17 13:23 Dose: 20 meq Potassium Chloride (Klor-Con M20) 20 meq PO DAILY [facility] Sodium Chloride (Saline Flush) 10 ml FLUSH ASDIRECTED PRN PRN Reason: Keep Vein Open Sodium Chloride (Saline Flush) 2.5 ml FLUSH ASDIRECTED PRN PRN Reason: Keep Vein Open Wound Care/Dressing Products (Duoderm Cgf) 1 each TOP ASDIRECTED ONE Stop: 06/27/17 19:17 Last Admin: 06/27/17 23:37 Dose: Not Given - Exam General: Alert, Oriented, Cooperative, No Acute Distress Neck: Supple Lungs: Clear to Auscultation, Normal Respiratory Effort Cardiovascular: Regular Rate, Regular Rhythm GI/Abdominal Exam: Normal Bowel Sounds, Soft, Non-Tender, No Organomegaly, No Distention, No Abnormal Bruit, No Mass, Pelvis Stable Extremities: Normal Inspection, Pedal Edema (+2 pitting R > L ). No: Redness Wound/Incisions: Erythema Improving (Fluctuance to lumbar spine incision much improved along with erythema. Scant drainage noted to dressing. No pain with palpation. Skins changes due to radiation in this area. ) Neurological: No New Focal Deficit Psy/Mental Status: Alert, Normal Affect, Normal Mood - Problem List & Annotations (1) Infected surgical wound SNOMED Code(s): 19634120, 124553979 Code(s): T81.4XXA - INFECTION FOLLOWING A PROCEDURE, INITIAL ENCOUNTER Status: Acute Current Visit: Yes Qualifiers: Encounter type: initial encounter Qualified Code(s): T81.4XXA - Infection following a procedure, initial encounter (2) Fluid collection at surgical site SNOMED Code(s): 960088157 Code(s): T88.8XXA - OTH COMPLICATIONS OF SURGICAL AND MEDICAL CARE, NEC, INIT Status: Acute Current Visit: Yes (3) Back pain SNOMED Code(s): 895912524 Code(s): M54.9 - DORSALGIA, UNSPECIFIED Status: Acute Current Visit: Yes Qualifiers: Back pain location: low back pain Chronicity: unspecified Back pain laterality: bilateral Sciatica presence: without sciatica Qualified Code(s) : M54.5 - Low back pain (4) Weakness SNOMED Code(s): 31738873 Code(s): R53.1 - WEAKNESS Status: Acute Current Visit: No (5) HTN (hypertension) SNOMED Code(s): 92815038 Code(s): I10 - ESSENTIAL (PRIMARY) HYPERTENSION Status: Chronic Current Visit: Yes Qualifiers: Hypertension type: essential hypertension Qualified Code(s): I10 - Essential (primary) hypertension (6) Hypercholesteremia SNOMED Code(s): 47791339 Code(s): E78.00 - PURE HYPERCHOLESTEROLEMIA, UNSPECIFIED Status: Chronic Current Visit: Yes (7) Metastatic primary lung cancer SNOMED Code(s): 91322576, 822072776 Code(s): C34.90 - MALIGNANT NEOPLASM OF UNSP PART OF UNSP BRONCHUS OR LUNG Status: Chronic Current Visit: Yes Qualifiers: Laterality: unspecified laterality Qualified Code(s): C34.90 - Malignant neoplasm of unspecified part of unspecified bronchus or lung (8) Osseous metastasis Status: Chronic Current Visit: Yes Annotation/Comment:: spine - Problem List Review Problem List Initiated/Reviewed/Updated: Yes - My Orders Last 24 Hours: My Active Orders 06/28/17 12:00 Consult to Physical Therapy [PT Evaluation and Treatment] [CONS] Routine 06/28/17 14:56 Drain Abscess or Cyst [US] Routine 06/28/17 15:16 Communication Order [RC] ROUTINE 06/28/17 17:00 Dexamethasone 4 mg IVPUSH Q6H 06/28/17 23:01 CULTURE ANAEROBIC [RM] Routine CULTURE WOUND [RM] Routine 06/29/17 07:30 Pantoprazole [ProTONIX] 40 mg PO ACBREAKFAST 06/29/17 09:00 Finasteride [Proscar] 5 mg PO DAILY - Plan Plan:: This 87 year old male admitted with probable surgical site infected with generalized weakness and back pain 1. Probable surgical site infection to Lumbar spine: Much improved today. Drainage of fluid collection was completed yesterday afternoon by Dr Whitley in Radiology. Cultures pending, gram stain reveals many WBCs, and moderate RBCs, no organisms noted. Wound culture from incision on admission reveals oxidase positive gram neg rods, GIL pending. Afebrile today. Continue with Vancomycin and Zosyn. Blood cultures negative x 1 day. 2. Generalized weakness: Improving. PT visited with patient yesterday. Will continue PT here. Family feels they are unable to care for him at home. There is no one who can stay with him care home at home and are requesting admission to SNF for rehabilitation. 3. Metastatic lung CA: Stable. Has extensive spinal/pelvic metastasis. Remains on oral chemotherapy, Crizotinib. 4. HTN: BP improved, remain low 100s SBP. Asymptomatic. Restart Proscar. Hold HCTZ, will monitor. VTE prophylaxis: Heparin held yesterday due to drainage. Will start today. Dispo: 2-4 days pending improvement. Possible transfer to [facility] for skill rehabilitation.
[2017-06-29] MEDS ORDERED: Bisacodyl 10 MG Supp RECTAL PRN (08:50)
[2017-06-29] MEDS: Finasteride 5 MG Tab PO SCH (08:54)
[2017-06-29] MEDS: Potassium Chloride 20 MEQ Tab.ER PO SCH (08:55)
[2017-06-29] MEDS: CRIZOTINIB 250 MG PO SCH ×2 (08:56→20:54)
[2017-06-29] MEDS ORDERED: Docusate Sodium 100 MG Cap PO SCH (09:00)
--- NOTE | 2017-06-29 09:06 | US ---
EXAMINATION: Ultrasound guided subcutaneous fluid aspiration HISTORY: Abscess COMPARISON: MRI from the same day TECHNIQUE: The subcutaneous fluid collection within the lower back was identified. The overlying area was sterilely prepped and draped using ChloraPrep. 1% lidocaine was administered for local anesthesi a. Using ultrasound guidance an 18-gauge needle was advanced into the fluid collection and approximat amado 5 mL of blood tinged fluid was aspirated. The patient tolerated the procedure well. There are no immediate complications. IMPRESSION: Successful ultrasound guided aspiration of a lower back subcutaneous fluid collection.
[2017-06-29] MEDS ORDERED: Docusate Sodium 100 MG Cap PO PRN (16:34)
[2017-06-29] MEDS: Simvastatin 20 MG Tab PO SCH (20:55)
[2017-06-29] MEDS: oxyCODONE 5 MG Tab PO PRN (20:55)
[2017-06-29] MEDS: Heparin Sodium 5,000 Units/ML Vial SUBCUT SCH (20:56)
[2017-06-30] MEDS: Piperacillin/Tazobactam 3.375 GM in Sodium Chloride 0.9% 50 ML IV SCH ×5 (00:44→23:28)
[2017-06-30] MEDS: Pantoprazole 40 MG Tab.CR PO SCH (06:30)
[2017-06-30 07:01] LABS: CHLORIDE,CL 108 mmol/L (98-107); SODIUM,NA 138 mmol/L (136-148)
--- NOTE | 2017-06-30 08:34 | PCM.PN ---
- General Info Date of Service: 06/30/17 Admission Dx/Problem (Free Text): Admission Diagnosis/Problem Admission Diagnosis/Problem Metastatic malignant neoplasm Subjective Update: Feeling better today, back pain is better, still having some incisional pain. Generalized weakness improving. No chest pain or SOB. Functional Status: Reports: Pain Controlled, Tolerating Diet, Ambulating, Urinating - Review of Systems General: Reports: No Symptoms. Denies: Fever, Weakness, Fatigue, Malaise Pulmonary: Reports: No Symptoms. Denies: Shortness of Breath, Cough, Sputum Cardiovascular: Reports: No Symptoms. Denies: Chest Pain, Edema Gastrointestinal: Reports: No Symptoms. Denies: Abdominal Pain Genitourinary: Reports: No Symptoms. Denies: Dysuria, Frequency, Burning Musculoskeletal: Reports: Back Pain (improved, having same incisional pain) Skin: Reports: No Symptoms Neurological: Reports: No Symptoms Psychiatric: Reports: No Symptoms - Patient Data Vitals - Most Recent: Last Vital Signs Temp 96.9 F 06/30/17 07:14 Pulse 56 L 06/30/17 07:14 Resp 16 06/30/17 07:14 BP 114/58 L 06/30/17 07:14 Pulse Ox 95 06/30/17 07:14 Weight - Most Recent: 71.35 kg I&O - Last 24 Hours: Intake & Output 06/29/17 06/30/17 06/30/17 22:59 06:59 14:59 Intake Total 1200 320 Output Total 275 300 Balance 925 20 Lab Results Last 24 Hours: Laboratory Results - last 24 hr 06/29/17 06/30/17 06/30/17 Range/Units 08:37 06:20 06:20 WBC 9.79 (4.0-11.0) K/uL RBC 3.70 L (4.50-5.90) M/uL Hgb 10.8 L (13.0-17.0) g/dL Hct 33.0 L (38.0-50.0) % MCV 89.2 (80.0-98.0) fL MCH 29.2 (27.0-32.0) pg MCHC 32.7 (31.0-37.0) g/dL RDW Std Deviation 48.1 (28.0-62.0) fl RDW Coeff of Estelita 15 (11.0-15.0) % Plt Count 311 (150-400) K/uL MPV 8.30 (7.40-12.00) fL Neut % (Auto) 90.1 H (48.0-80.0) % Lymph % (Auto) 8.4 L (16.0-40.0) % [place] % (Auto) 1.4 (0.0-15.0) % Eos % (Auto) 0.0 (0.0-7.0) % Baso % (Auto) 0.1 (0.0-1.5) % Neut # (Auto) 8.8 H (1.4-5.7) K/uL Lymph # (Auto) 0.8 (0.6-2.4) K/uL [place] # (Auto) 0.1 (0.0-0.8) K/uL Eos # (Auto) 0.0 (0.0-0.7) K/uL Baso # (Auto) 0.0 (0.0-0.1) K/uL Nucleated RBC % 0.0 /100WBC Nucleated RBCs # 0 K/uL Sodium 138 (136-148) mmol/L Potassium 4.6 (3.5-5.1) mmol/L Chloride 108 H (98-107) mmol/L Carbon Dioxide 29.5 (21.0-32.0) mmol/L BUN 20 H (7.0-18.0) mg/dL Creatinine 0.9 (0.8-1.3) mg/dL Est Cr Clr Drug Dosing 56.16 mL/min Estimated GFR (MDRD) > 60.0 ml/min Glucose 126 H (74-106) mg/dL Calcium 7.2 L (8.5-10.1) mg/dL Vancomycin Trough 13.5 H (5.0-10.0) ug/mL Gil Results Last 24 Hours: Microbiology 06/27/17 22:00 Wound Culture - Final Back Pseudomonas Aeruginosa Skin Clementina 06/27/17 17:52 Aerobic Blood Culture - Preliminary Blood - Venous - Lab Draw NO GROWTH AFTER 2 DAYS Anaerobic Blood Culture - Preliminary NO GROWTH AFTER 2 DAYS 06/27/17 17:45 Aerobic Blood Culture - Preliminary Blood - Venous NO GROWTH AFTER 2 DAYS Anaerobic Blood Culture - Final 06/28/17 16:40 Gram Stain - Preliminary Back Med Orders - Current: Current Medications Albuterol (Ventolin Hfa) 0 gm INH ASDIRECTED PRN PRN Reason: Shortness of Breath Albuterol/Ipratropium (Duoneb 3.0-0.5 Mg/3 Ml) 3 ml NEB Q4HRRT PRN PRN Reason: Shortness Of Breath/wheezing Bisacodyl (Dulcolax) 10 mg RECTAL DAILY PRN PRN Reason: Constipation Docusate Sodium (Colace) 200 mg PO BID PRN PRN Reason: Constipation Finasteride (Proscar) 5 mg PO DAILY [facility] Last Admin: 06/29/17 08:54 Dose: 5 mg Heparin Sodium (Porcine) (Heparin Sodium) 5,000 units SUBCUT Q12HR [facility] Last Admin: 06/29/17 20:56 Dose: 5,000 units Vancomycin HCl 1 gm/ Sodium (Chloride) 250 mls @ 166 mls/hr IV Q12H [facility] Last Infusion: 06/29/17 22:35 Dose: Infused Piperacillin Sod/Tazobactam (Sod 3.375 gm/ Sodium Chloride) 50 mls @ 100 mls/ hr IV Q6H [facility] Last Infusion: 06/30/17 05:40 Dose: Infused Crizotinib [Xalkori] 250 Mg Cap Own Med 250 mg PO BID [facility] Last Admin: 06/29/17 20:54 Dose: 250 mg Oxycodone HCl (Oxycodone) 5 mg PO Q4H PRN PRN Reason: Pain (moderate 4-6) Last Admin: 06/29/17 20:55 Dose: 5 mg Pantoprazole Sodium (Protonix) 40 mg PO ACBREAKFAST [facility] Last Admin: 06/30/17 06:30 Dose: 40 mg Potassium Chloride (Klor-Con M20) 40 meq PO DAILY [facility] Last Admin: 06/29/17 08:55 Dose: 40 meq Simvastatin (Zocor) 20 mg PO BEDTIME [facility] Last Admin: 06/29/17 20:55 Dose: 20 mg Sodium Chloride (Saline Flush) 10 ml FLUSH ASDIRECTED PRN PRN Reason: Keep Vein Open Sodium Chloride (Saline Flush) 2.5 ml FLUSH ASDIRECTED PRN PRN Reason: Keep Vein Open Vancomycin HCl (Pharmacy To Dose - Vancomycin) 0 dose .XX ASDIRECTED [facility] Wound Care/Dressing Products (Duoderm Cgf) 1 each TOP ASDIRECTED PRN PRN Reason: Other Last Admin: 06/27/17 21:15 Dose: 1 each Discontinued Medications Calcium Carbonate/Glycine (Tums) 1,000 mg PO ONETIME ONE Stop: 06/29/17 07:55 Last Admin: 06/29/17 08:53 Dose: 1,000 mg Dexamethasone (Dexamethasone) 10 mg IVPUSH ONETIME ONE Stop: 06/27/17 20:44 Last Admin: 06/27/17 21:03 Dose: 10 mg Dexamethasone (Dexamethasone) 10 mg IVPUSH ONETIME ONE Stop: 06/28/17 10:15 Last Admin: 06/28/17 10:26 Dose: 10 mg Dexamethasone (Dexamethasone) 4 mg IVPUSH Q6H [facility] Dexamethasone (Dexamethasone) 4 mg IVPUSH Q6H [facility] Last Admin: 06/29/17 05:05 Dose: 4 mg Docusate Sodium (Colace) 200 mg PO BID [facility] Last Admin: 06/29/17 08:59 Dose: 200 mg Finasteride (Proscar) 5 mg PO DAILY [facility] Hydrochlorothiazide (Hydrochlorothiazide) 25 mg PO DAILY [facility] Piperacillin Sod/Tazobactam (Sod 4.5 gm/ Sodium Chloride) 100 mls @ 100 mls/hr IV Q6H [facility] Last Admin: 06/28/17 08:52 Dose: 100 mls/hr Sodium Chloride (Normal Saline) 500 mls @ 250 mls/hr IV .BOLUS [facility] Last Admin: 06/28/17 08:39 Dose: 250 mls/hr Iopamidol (Isovue Multipack-370 (76%)) 200 ml IVPUSH ONETIME ONE Stop: 06/27/17 13:15 Last Admin: 06/27/17 13:19 Dose: 70 ml Oxycodone HCl (Oxycodone) 5 mg PO Q4HR [facility] Potassium Chloride (Klor-Con M20) 20 meq PO ONETIME ONE Stop: 06/27/17 12:51 Last Admin: 06/27/17 13:23 Dose: 20 meq Potassium Chloride (Klor-Con M20) 20 meq PO DAILY [facility] Sodium Chloride (Saline Flush) 10 ml FLUSH ASDIRECTED PRN PRN Reason: Keep Vein Open Sodium Chloride (Saline Flush) 2.5 ml FLUSH ASDIRECTED PRN PRN Reason: Keep Vein Open Wound Care/Dressing Products (Duoderm Cgf) 1 each TOP ASDIRECTED ONE Stop: 06/27/17 19:17 Last Admin: 06/27/17 23:37 Dose: Not Given - Exam Quality Assessment: DVT Prophylaxis. No: Supplemental Oxygen General: Alert, Oriented, Cooperative, No Acute Distress Neck: Supple Lungs: Clear to Auscultation, Normal Respiratory Effort Cardiovascular: Regular Rate, Regular Rhythm GI/Abdominal Exam: Normal Bowel Sounds, Soft, Non-Tender, No Organomegaly, No Distention, No Abnormal Bruit, No Mass, Pelvis Stable Back Exam: Full Range of Motion Extremities: Normal Inspection, Normal Range of Motion, Pedal Edema (+1 pitting edema, improved with compression stockings.) Wound/Incisions: Drainage (scant drainage from wound. Wet to dry dressing intact. TO be changed this morning. ). No: Erythema Neurological: No New Focal Deficit Psy/Mental Status: Alert, Normal Affect, Normal Mood - Problem List & Annotations (1) Infected surgical wound SNOMED Code(s): 31508028, 941889644 Code(s): T81.4XXA - INFECTION FOLLOWING A PROCEDURE, INITIAL ENCOUNTER Status: Acute Current Visit: Yes Qualifiers: Encounter type: initial encounter Qualified Code(s): T81.4XXA - Infection following a procedure, initial encounter (2) Fluid collection at surgical site SNOMED Code(s): 454564807 Code(s): T88.8XXA - OTH COMPLICATIONS OF SURGICAL AND MEDICAL CARE, NEC, INIT Status: Acute Current Visit: Yes (3) Back pain SNOMED Code(s): 726302694 Code(s): M54.9 - DORSALGIA, UNSPECIFIED Status: Acute Current Visit: Yes Qualifiers: Back pain location: low back pain Chronicity: unspecified Back pain laterality: bilateral Sciatica presence: without sciatica Qualified Code(s) : M54.5 - Low back pain (4) Weakness SNOMED Code(s): 58259328 Code(s): R53.1 - WEAKNESS Status: Acute Current Visit: No (5) HTN (hypertension) SNOMED Code(s): 65524293 Code(s): I10 - ESSENTIAL (PRIMARY) HYPERTENSION Status: Chronic Current Visit: Yes Qualifiers: Hypertension type: essential hypertension Qualified Code(s): I10 - Essential (primary) hypertension (6) Hypercholesteremia SNOMED Code(s): 37764089 Code(s): E78.00 - PURE HYPERCHOLESTEROLEMIA, UNSPECIFIED Status: Chronic Current Visit: Yes (7) Metastatic primary lung cancer SNOMED Code(s): 94825596, 048301661 Code(s): C34.90 - MALIGNANT NEOPLASM OF UNSP PART OF UNSP BRONCHUS OR LUNG Status: Chronic Current Visit: Yes Qualifiers: Laterality: unspecified laterality Qualified Code(s): C34.90 - Malignant neoplasm of unspecified part of unspecified bronchus or lung (8) Osseous metastasis Status: Chronic Current Visit: Yes Annotation/Comment:: spine - Problem List Review Problem List Initiated/Reviewed/Updated: Yes - My Orders Last 24 Hours: My Active Orders 06/29/17 08:45 Consult to Physical Therapy [PT Evaluation and Treatment] [CONS] Routine 06/29/17 08:46 JOSE FRANCISCO Hose [Antiembolic Hose] [OM.PC] Routine 06/29/17 08:50 Bisacodyl [Dulcolax] 10 mg RECTAL DAILY PRN 06/29/17 09:00 Finasteride [Proscar] 5 mg PO DAILY 06/29/17 16:34 Docusate Sodium [Colace] 200 mg PO BID PRN 06/29/17 21:00 Heparin Sodium 5,000 units SUBCUT Q12HR - Plan Plan:: This 87 year old male admitted with probable surgical site infected with generalized weakness and back pain 1. Probable surgical site infection to Lumbar spine: Continues to improve. Culture from wound on admission reveals skin clementina and Pseudomonas aeruginosa sensitive to Zosyn. Will discontinue Vancomycin. Cultures from drainage reveals no growth or organisms. Afebrile today. Blood cultures negative x 2 day. Continue wet to dry dressings to lumbar incision. 2. Generalized weakness: Improving. Continue PT. Unable to go to [facility] unless PO chemotherapy is stopped. Patient is debating this. Otherwise he would be discharged home with Home health to help with wound care and PT needs. 3. Metastatic lung CA: Stable. Has extensive spinal/pelvic metastasis. Remains on oral chemotherapy, Crizotinib. 4. HTN: Improved. Restart Proscar and HCTZ, will monitor. VTE prophylaxis: Heparin Q12h Dispo: 1-2 days pending improvement.
[2017-06-30] MEDS: Finasteride 5 MG Tab PO SCH (08:43)
[2017-06-30] MEDS: Potassium Chloride 20 MEQ Tab.ER PO SCH (08:44)
[2017-06-30] MEDS: oxyCODONE 5 MG Tab PO PRN ×2 (08:44→20:33)
[2017-06-30] MEDS: CRIZOTINIB 250 MG PO SCH ×2 (08:47→20:24)
[2017-06-30] MEDS: Heparin Sodium 5,000 Units/ML Vial SUBCUT SCH ×2 (08:58→20:24)
[2017-06-30] MEDS: Hydrocolloid Dressing 4x4 Bandage TOP PRN (10:06)
[2017-06-30] MEDS: Ascorbic Acid 500 MG Tab PO SCH ×2 (11:39→20:24)
[2017-06-30] MEDS: Simvastatin 20 MG Tab PO SCH (20:24)
[2017-07-01] MEDS: Piperacillin/Tazobactam 3.375 GM in Sodium Chloride 0.9% 50 ML IV SCH (06:10)
[2017-07-01] MEDS: Pantoprazole 40 MG Tab.CR PO SCH (06:47)
[2017-07-01 07:49] LABS: CHLORIDE,CL 110 mmol/L (98-107); SODIUM,NA 143 mmol/L (136-148)
[2017-07-01] MEDS ORDERED: Levofloxacin 250 MG Tab PO SCH (08:15)
--- NOTE | 2017-07-01 08:22 | PCM.DCSUM1 ---
Discharge Summary - Hospital Course Brief History: This 87-year-old male with a pmh of metastatic lung cancer, BPH, and HTN, presented to the ED with complaints of back pain and weakness. He follows with Dr. Sequeira, Oncology from [facility] as well as providers at of [facility]. He was seen here on May 24 and transferred to [facility] with similar complaints. 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 He then had 10 days of radiation therapy to strive to shrink the remaining tumor and during that time he was placed in rehabilitation there. He finished the radiation therapy and was started on oral chemotherapy on June 24 and on did very well with physical therapy with good strength and ambulating well and minimal pain. He had been having physical therapy throughout the course of the rehabilitation stay. He was using only one pain pill a day at that time of oxycodone 5 mg. The patient felt good enough to be discharged home and was picked up by his family on WednesdayJune 25, had an uneventful trip home. Patient woke Wednesday morning with complaints of increased pain near his incisional area and lower extremity weakness and difficulty ambulating. The patient currently is using the oxycodone 5 mg every 4-6 hours as prescribed and this is an increase from when he was at the rehabilitation location. The patient has not had any recent falls or near falls and has no systemic complaints of fever chills chest pain shortness of breath abdominal pain vomiting urinary or bowel complaints. He does not feel like he is having urinary retention and he is not having loss of bowel or bladder. He says the pain is mostly localized near his incisional area and is worse when he lays on it but it does not radiate to his legs. He feels that the legs are weaker than they were several days ago and he feels more unsteady with his gait. Family says they are unable to address his needs and are concerned about this sudden change from his discharge until today. Patient' s oncologist at [facility] is Dr. Bhatti and his neurosurgeon was Dr Vasquez. In the ED WBC 9,280 BMP WNL, slight hypokalemia noted 3.1. UA negative. Lumbar spine CT revealed widespread osseous metastatic disease involving the spine and pelvis. L3 reveals posterior decompression, mild superior and inferior endplate compression deformities along with a small fliud collection within the posterior subcutaneous tissues measuring 3.4 x 1.6 x 5.6 cm in size, no significant central canal nor hig grade forminal stenosis. CXR reveals small improved L pleural effusion. Transfer was recommended by Dr Gould and Dr Hayes, general surgeon. Patient and family declines this and wanted as much evaluation and treatment here prior to transfer. - Discharge Data Discharge Date: 07/01/17 Discharge Disposition: DC/Tfer to SNF 03 Condition: Good - Discharge Diagnosis/Problem(s) (1) Infected surgical wound SNOMED Code(s): 83005004, 495410585 ICD Code: T81.4XXA - INFECTION FOLLOWING A PROCEDURE, INITIAL ENCOUNTER Status: Acute Current Visit: Yes Qualifiers: Encounter type: initial encounter Qualified Code(s): T81.4XXA - Infection following a procedure, initial encounter (2) Fluid collection at surgical site SNOMED Code(s): 634414854 ICD Code: T88.8XXA - OTH COMPLICATIONS OF SURGICAL AND MEDICAL CARE, NEC, INIT Status: Resolved Current Visit: Yes (3) Back pain SNOMED Code(s): 317050458 ICD Code: M54.9 - DORSALGIA, UNSPECIFIED Status: Acute Current Visit: Yes Qualifiers: Back pain location: low back pain Chronicity: unspecified Back pain laterality: bilateral Sciatica presence: without sciatica Qualified Code(s) : M54.5 - Low back pain (4) Weakness SNOMED Code(s): 21209868 ICD Code: R53.1 - WEAKNESS Status: Acute Current Visit: No (5) HTN (hypertension) SNOMED Code(s): 59094616 ICD Code: I10 - ESSENTIAL (PRIMARY) HYPERTENSION Status: Chronic Current Visit: Yes Qualifiers: Hypertension type: essential hypertension Qualified Code(s): I10 - Essential (primary) hypertension (6) Hypercholesteremia SNOMED Code(s): 91791357 ICD Code: E78.00 - PURE HYPERCHOLESTEROLEMIA, UNSPECIFIED Status: Chronic Current Visit: Yes (7) Metastatic primary lung cancer SNOMED Code(s): 43424600, 109133290 ICD Code: C34.90 - MALIGNANT NEOPLASM OF UNSP PART OF UNSP BRONCHUS OR LUNG Status: Chronic Current Visit: Yes Qualifiers: Laterality: unspecified laterality Qualified Code(s): C34.90 - Malignant neoplasm of unspecified part of unspecified bronchus or lung (8) Osseous metastasis Status: Chronic Current Visit: Yes Problem Details: spine (9) BPH (benign prostatic hyperplasia) SNOMED Code(s): 610018441 ICD Code: N40.0 - BENIGN PROSTATIC HYPERPLASIA WITHOUT LOWER URINRY TRACT SYMP Status: Chronic Current Visit: Yes Qualifiers: Lower urinary tract symptom detail: urinary frequency - Patient Summary/Data Consults: Consultations 06/28/17 12:00 Consult to Physical Therapy [PT Evaluation and Treatment] [CONS] Routine 06/29/17 08:45 Consult to Physical Therapy [PT Evaluation and Treatment] [CONS] Routine - Patient Instructions Diet: Heart Healthy Diet, Low Sodium Activity: As Tolerated, No Strenuous Activities Showering/Bathing: May Shower (cover lumbar incision), No Tub Bathing/Swimming Wound/Incision Care: Keep Operative Site/Wound Site Clean and Dry Notify Provider of: Fever, Increased Pain, Swelling and Redness, Drainage, Nausea and/or Vomiting Other/Special Instructions: PT/OT/ST to evaluate and treat. Wound care nurse to evaluate Lumbar spine incision and sacral ulcer. Continue Wet to dry dressing changes twice daily to lumbar spine incision. - Discharge Plan Prescriptions/Med Rec: oxyCODONE 5 mg PO Q4HR #30 tablet Ascorbic Acid [Vitamin C] 500 mg PO BID #60 tablet Bisacodyl [Dulcolax] 10 mg RECTAL DAILY PRN #15 supp PRN Reason: Constipation Docusate Sodium [Colace] 200 mg PO BID PRN #60 cap PRN Reason: Constipation Levofloxacin [Levaquin] 750 mg PO DAILY #9 tab Home Medications: Home Meds Finasteride [Proscar] 5 mg PO DAILY 08/07/16 [History] Hydrochlorothiazide 25 mg PO DAILY 08/07/16 [History] Potassium Chloride 20 meq PO DAILY 08/07/16 [History] Simvastatin [Zocor] 20 mg PO BEDTIME 08/07/16 [History] Albuterol [Ventolin HFA] 8 gm INH ASDIRECTED PRN 06/27/17 [History] Ascorbic Acid [Vitamin C] 500 mg PO BID #60 tablet 07/01/17 [Rx] Bisacodyl [Dulcolax] 10 mg RECTAL DAILY PRN #15 supp 07/01/17 [Rx] Docusate Sodium [Colace] 200 mg PO BID PRN #60 cap 07/01/17 [Rx] Levofloxacin [Levaquin] 750 mg PO DAILY #9 tab 07/01/17 [Rx] oxyCODONE 5 mg PO Q4HR #30 tablet 07/01/17 [Rx] Patient Handouts: Docusate Sodium; Senna tablets or capsules, Bisacodyl tablets and capsules, Ascorbic Acid, Vitamin C tablet, Oxycodone tablets or capsules, Hypertension, [id number], Back Pain, Adult, [id number], Levofloxacin tablets, Lung Cancer Referrals: Harish Krishnamurthy MD [Physician] - 07/08/17 (On his next [facility] rounds.) - Discharge Summary/Plan Comment DC Time >30 min.: No Discharge Summary/Plan Comment: Discharge Diagnoses: Infected surgical insision Slow healing of surgical incision Fluid collection near surgical incision Deconditioning generalized weakness Back pain Metastatic lung cance Spine metastasis S/P tumor resection to lumbar spine with radiation and chemotherapy HTN Hypercholesterolemia BPH Shepherd (Ormal) was treated for possible infection to surgical incision of lumbar spine. Wound cultures and blood cutlures obtained on admission. He was started on treatment of Vancomycin and Zosyn. Dr Hayes, general surgery was consulted regarding fluid collection noted on CT. She recommended transferring back to [facility] in [place] for further management. The patient and family DECLINED any transfer and wanted everything done here if possible. Dr Hayes signed off on the case. I spoke with Dr Vasquez, neurosurgeon in [facility], she recommended MRI to further evaluate fluid collection and possible stenosis. She did recommend Decadron 4 mg IV Q6 until MRI results obtained and images reviewed by her. MRI obtained and she reviewed this, tumor to L3 was much improved and she recommended stopping Decadron. She did report if someone could drain fluid collection it would be beneficial and did not appear to be CSF leak. I spoke with Dr Whitley, radiologist, who was able to complete drainage of this collection due to is superficial nature. He was able to drain 5 ml from this site and obtained cultures and gram stain. This fluid was not purulent, but more bloody in appearance. Aerobic and anaerobic cultures returned negative and with no growth. 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 Vancomycin was discontinued. I spoke with ID, Dr Cowart from [facility], who recommended a 10 day course of Levaquin would be a good choice for at home regimen. Shepherd has done very well this admission, no leukocytosis noted and remain afebrile. His wound to his lumbar spine continues to be open and we have been completing wet to dry dressing changes. Incision is no longer erythematous, it does have skin coloration changes due to radiation and no longer fluctuant after drainage of fluid collection. He was worked with PT due to deconditioning and generalized weakness. In discussion with family, his daughters are unable to help care for him so he is able to return home alone. They requested transfer to [facility] for wound care and physical therapy. Because of this process, they are unable to continue PO chemotherapy and have decided this is the best option in discussion with Shepherd. So upon transfer to [facility] PO chemotherapy will be placed on hold. I have spoke with Dr Krishnamurthy, who accepts Shepherd for transfer to [facility] upon discharge. I will continue all other home medications as well as Levaquin 750 mg for 9 more days. he will have PT/OT/ST to evaluated and treat along with wound care nurse to evaluate and treated lumbar spine wound and r sacral stage 1 ulcer. He is to return to ED or clinic if concerns should arise. - General Info Date of Service: 07/01/17 Admission Dx/Problem (Free Text: Admission Diagnosis/Problem Admission Diagnosis/Problem Metastatic malignant neoplasm Subjective Update: Sitting up in the chair. Feeling good today. Pain is well tolerated. No chest pain or SOB. Functional Status: Reports: Pain Controlled, Tolerating Diet, Ambulating, Urinating - Review of Systems General: Reports: No Symptoms. Denies: Fever, Weakness, Fatigue, Malaise HEENT: Reports: No Symptoms. Denies: Headaches, Sore Throat, Visual Changes Pulmonary: Reports: No Symptoms. Denies: Shortness of Breath, Cough, Sputum, Hemoptysis Cardiovascular: Reports: No Symptoms. Denies: Chest Pain, Edema Gastrointestinal: Reports: No Symptoms. Denies: Abdominal Pain, Nausea, Vomiting Genitourinary: Reports: No Symptoms. Denies: Dysuria, Frequency, Burning Musculoskeletal: Reports: Back Pain (much improved. ) Skin: Reports: No Symptoms Neurological: Reports: No Symptoms. Denies: Numbness, Difficulty Walking, Weakness Psychiatric: Reports: No Symptoms - Patient Data Vitals - Most Recent: Last Vital Signs Temp 96.9 F 07/01/17 08:00 Pulse 61 07/01/17 08:00 Resp 18 07/01/17 08:00 BP 119/56 L 07/01/17 08:00 Pulse Ox 97 07/01/17 08:00 Weight - Most Recent: 71.35 kg I&O - Last 24 hours: Intake & Output 06/30/17 07/01/17 07/01/17 22:59 06:59 14:59 Intake Total 510 450 Output Total 400 350 Balance 110 100 Lab Results - Last 24 hrs: Laboratory Results - last 24 hr 07/01/17 07/01/17 Range/Units 06:06 07:20 WBC 8.55 (4.0-11.0) K/uL RBC 3.96 L (4.50-5.90) M/uL Hgb 11.5 L (13.0-17.0) g/dL Hct 35.2 L (38.0-50.0) % MCV 88.9 (80.0-98.0) fL MCH 29.0 (27.0-32.0) pg MCHC 32.7 (31.0-37.0) g/dL RDW Std Deviation 47.9 (28.0-62.0) fl RDW Coeff of Estelita 15 (11.0-15.0) % Plt Count 324 (150-400) K/uL MPV 8.40 (7.40-12.00) fL Neut % (Auto) 79.6 (48.0-80.0) % Lymph % (Auto) 8.5 L (16.0-40.0) % Armstrong % (Auto) 11.6 (0.0-15.0) % Eos % (Auto) 0.1 (0.0-7.0) % Baso % (Auto) 0.2 (0.0-1.5) % Neut # (Auto) 6.8 H (1.4-5.7) K/uL Lymph # (Auto) 0.7 (0.6-2.4) K/uL Armstrong # (Auto) 1.0 H (0.0-0.8) K/uL Eos # (Auto) 0.0 (0.0-0.7) K/uL Baso # (Auto) 0.0 (0.0-0.1) K/uL Nucleated RBC % 0.0 /100WBC Nucleated RBCs # 0 K/uL Sodium 143 (136-148) mmol/L Potassium 4.9 (3.5-5.1) mmol/L Chloride 110 H (98-107) mmol/L Carbon Dioxide 25.6 (21.0-32.0) mmol/L BUN 18 (7.0-18.0) mg/dL Creatinine 0.9 (0.8-1.3) mg/dL Est Cr Clr Drug Dosing 56.16 mL/min Estimated GFR (MDRD) > 60.0 ml/min Glucose 98 (74-106) mg/dL Calcium 7.3 L (8.5-10.1) mg/dL TALIA Results - Last 24 hrs: Microbiology 06/27/17 17:52 Aerobic Blood Culture - Preliminary Blood - Venous - Lab Draw NO GROWTH AFTER 3 DAYS Anaerobic Blood Culture - Preliminary NO GROWTH AFTER 3 DAYS 06/27/17 17:45 Aerobic Blood Culture - Preliminary Blood - Venous NO GROWTH AFTER 3 DAYS Anaerobic Blood Culture - Final 06/28/17 16:40 Gram Stain - Final Back Wound Culture - Final No Growth Anaerobic Culture - Final NO ANAEROBES ISOLATED 06/27/17 22:00 Wound Culture - Final Back Pseudomonas Aeruginosa Skin Eri Med Orders - Current: Current Medications Albuterol (Ventolin Hfa) 0 gm INH ASDIRECTED PRN PRN Reason: Shortness of Breath Albuterol/Ipratropium (Duoneb 3.0-0.5 Mg/3 Ml) 3 ml NEB Q4HRRT PRN PRN Reason: Shortness Of Breath/wheezing Ascorbic Acid (Vitamin C) 500 mg PO BID [facility] Last Admin: 06/30/17 20:24 Dose: 500 mg Bisacodyl (Dulcolax) 10 mg RECTAL DAILY PRN PRN Reason: Constipation Docusate Sodium (Colace) 200 mg PO BID PRN PRN Reason: Constipation Finasteride (Proscar) 5 mg PO DAILY [facility] Last Admin: 06/30/17 08:43 Dose: 5 mg Heparin Sodium (Porcine) (Heparin Sodium) 5,000 units SUBCUT Q12HR [facility] Last Admin: 06/30/17 20:24 Dose: 5,000 units Hydrochlorothiazide (Hydrochlorothiazide) 25 mg PO DAILY [facility] Levofloxacin (Levaquin) 750 mg PO Q24H [facility] Oxycodone HCl (Oxycodone) 5 mg PO Q4H PRN PRN Reason: Pain (moderate 4-6) Last Admin: 06/30/17 20:33 Dose: 5 mg Pantoprazole Sodium (Protonix) 40 mg PO ACBREAKFAST [facility] Last Admin: 07/01/17 06:47 Dose: 40 mg Simvastatin (Zocor) 20 mg PO BEDTIME [facility] Last Admin: 06/30/17 20:24 Dose: 20 mg Sodium Chloride (Saline Flush) 10 ml FLUSH ASDIRECTED PRN PRN Reason: Keep Vein Open Sodium Chloride (Saline Flush) 2.5 ml FLUSH ASDIRECTED PRN PRN Reason: Keep Vein Open Wound Care/Dressing Products (Duoderm Cgf) 1 each TOP ASDIRECTED PRN PRN Reason: Other Last Admin: 06/30/17 10:06 Dose: 1 each Discontinued Medications Calcium Carbonate/Glycine (Tums) 1,000 mg PO ONETIME ONE Stop: 06/29/17 07:55 Last Admin: 06/29/17 08:53 Dose: 1,000 mg Dexamethasone (Dexamethasone) 10 mg IVPUSH ONETIME ONE Stop: 06/27/17 20:44 Last Admin: 06/27/17 21:03 Dose: 10 mg Dexamethasone (Dexamethasone) 10 mg IVPUSH ONETIME ONE Stop: 06/28/17 10:15 Last Admin: 06/28/17 10:26 Dose: 10 mg Dexamethasone (Dexamethasone) 4 mg IVPUSH Q6H [facility] Dexamethasone (Dexamethasone) 4 mg IVPUSH Q6H [facility] Last Admin: 06/29/17 05:05 Dose: 4 mg Docusate Sodium (Colace) 200 mg PO BID [facility] Last Admin: 06/29/17 08:59 Dose: 200 mg Finasteride (Proscar) 5 mg PO DAILY [facility] Hydrochlorothiazide (Hydrochlorothiazide) 25 mg PO DAILY [facility] Piperacillin Sod/Tazobactam (Sod 4.5 gm/ Sodium Chloride) 100 mls @ 100 mls/hr IV Q6H [facility] Last Admin: 06/28/17 08:52 Dose: 100 mls/hr Vancomycin HCl 1 gm/ Sodium (Chloride) 250 mls @ 166 mls/hr IV Q12H [facility] Last Admin: 06/30/17 11:31 Dose: Not Given Sodium Chloride (Normal Saline) 500 mls @ 250 mls/hr IV .BOLUS [facility] Last Admin: 06/28/17 08:39 Dose: 250 mls/hr Piperacillin Sod/Tazobactam (Sod 3.375 gm/ Sodium Chloride) 50 mls @ 100 mls/ hr IV Q6H [facility] Last Admin: 07/01/17 06:10 Dose: 100 mls/hr Iopamidol (Isovue Multipack-370 (76%)) 200 ml IVPUSH ONETIME ONE Stop: 06/27/17 13:15 Last Admin: 06/27/17 13:19 Dose: 70 ml Crizotinib [Xalkori] 250 Mg Cap Own Med 250 mg PO BID [facility] Last Admin: 06/30/17 20:24 Dose: 250 mg Oxycodone HCl (Oxycodone) 5 mg PO Q4HR [facility] Potassium Chloride (Klor-Con M20) 20 meq PO ONETIME ONE Stop: 06/27/17 12:51 Last Admin: 06/27/17 13:23 Dose: 20 meq Potassium Chloride (Klor-Con M20) 20 meq PO DAILY [facility] Potassium Chloride (Klor-Con M20) 40 meq PO DAILY [facility] Last Admin: 06/30/17 08:44 Dose: 40 meq Sodium Chloride (Saline Flush) 10 ml FLUSH ASDIRECTED PRN PRN Reason: Keep Vein Open Sodium Chloride (Saline Flush) 2.5 ml FLUSH ASDIRECTED PRN PRN Reason: Keep Vein Open Vancomycin HCl (Pharmacy To Dose - Vancomycin) 0 dose .XX ASDIRECTED [facility] Wound Care/Dressing Products (Duoderm Cgf) 1 each TOP ASDIRECTED ONE Stop: 06/27/17 19:17 Last Admin: 06/27/17 23:37 Dose: Not Given - Exam General: Reports: Alert, Oriented, Cooperative, No Acute Distress Neck: Reports: Supple Lungs: Reports: Clear to Auscultation, Normal Respiratory Effort Cardiovascular: Reports: Regular Rate, Regular Rhythm GI/Abdominal Exam: Normal Bowel Sounds, Soft, Non-Tender, No Organomegaly, No Distention, No Abnormal Bruit, No Mass, Pelvis Stable Extremities: Normal Inspection, Normal Range of Motion, Non-Tender, No Pedal Edema, Normal Capillary Refill Wound/Incisions: Reports: Dressing Dry and Intact, Decubitis (R sacral ulcer, stage 1. Lumbar spine healing incision reveals white healing tissue with small amount of dark tissue near center on incision. Edges clean no necrosis. Wet to dry dressing changes to continue. No erythema or fluctuance noted.). Denies: Erythema Neurological: Reports: No New Focal Deficit Psy/Mental Status: Reports: Alert, Normal Affect, Normal Mood
[2017-07-01] MEDS ORDERED: Hydrochlorothiazide 25 MG Tab PO SCH (09:00)
[2017-07-01] MEDS: oxyCODONE 5 MG Tab PO PRN (10:41)
[2017-07-01] MEDS: Ascorbic Acid 500 MG Tab PO SCH (10:41)
[2017-07-01] MEDS: Finasteride 5 MG Tab PO SCH (10:41)
[2017-07-01] MEDS: Heparin Sodium 5,000 Units/ML Vial SUBCUT SCH (10:52)
[2017-07-01 13:00] VITALS: BP 100/54
== END 2017-07-01 13:30 | DRG 863 ==
LOC: MW.ED 11:03 → MW.MS 14:29
PROVIDERS: ADMIT Internal Medicine; ATTEND Internal Medicine
PROC: 0J973ZX Drainage of Back Subcutaneous Tissue and Fascia, Percutaneous Approach, Diagnostic (ICD-10-PCS; principal; 2017-06-29)
DX: T81.4XXA Infection following a procedure, initial encounter (principal); R26.81 Unsteadiness on feet; C34.90 Malignant neoplasm of unspecified part of unspecified bronchus or lung; C79.51 Secondary malignant neoplasm of bone; T88.8XXA Other specified complications of surgical and medical care, not elsewhere classified, initial encounter; B96.5 Pseudomonas (aeruginosa) (mallei) (pseudomallei) as the cause of diseases classified elsewhere; Z98.890 Other specified postprocedural states; M54.5 Low back pain; R53.1 Weakness; I10 Essential (primary) hypertension; E78.00 Pure hypercholesterolemia, unspecified; N40.1 Benign prostatic hyperplasia with lower urinary tract symptoms; R35.0 Frequency of micturition; Z79.899 Other long term (current) drug therapy
CPT/HCPCS: 36415; 71045; 72132; 80053; 81001; 83605; 83735; 85025; 99285; A9270; Q9967; 72158; 72158-26; 75989; 75989-26; 76942-26-RT; 76942-RT; 80048; 80202; 87040; 87070; 87075; 87077; 87186; 87205; 97110-GP; 97161-GP; 99284; J1100; J1644; J2543; J3370; J7030; J7040; J7050